=== PATIENT | female | born 1970 | race Caucasian/White ===

== ENCOUNTER 2017-04-03 09:46 | Emergency (ER) | payer BC ==
[~2017-04-03] VITALS: Ht 162.6 cm; Wt 95.7 kg
[~2017-04-03 09:46] MED LIST: COLA100C2; PERC5TAB8; SENN8.6T5
[2017-04-03] MEDS ORDERED: FOLB1TAB PO (09:55)
[2017-04-03] MEDS ORDERED: NS 1,000 ML IV ONE (10:15)
[2017-04-03] MEDS ORDERED: ONDANSETRON 4MG/2ML VIAL (J2405) IV ONE (10:15)
[2017-04-03] MEDS ORDERED: GI COCKTAIL 50ML BTL(HYOSCYAMINE/MAALOX/LIDOCAINE VISCOUS)(1:3:1) PO ONE (10:15)
[2017-04-03 11:00] LABS: BASO % 0.9 % (0.0-1.0); EOS # 0.1 K/mm3 (0.0-0.50); EOS % 1.5 % (0.0-3.0); LARGE UNSTAINED CELL % 1.4 % (0.0-4.0); LYMPH # 1.4 K/mm3 (1.5-4.5); LYMPH % 23.7 % (24.0-44.0); MEAN CORPUSCULAR HEMOGLOBIN 29.7 pg (27.0-33.0); MEAN CORPUSCULAR HGB CONC 32.9 g/dl (32.0-36.5); MEAN CORPUSCULAR VOLUME 90.2 fl (80.0-96.0); MONO # 0.3 K/mm3 (0.0-0.8); MONO % 5.6 % (0.0-5.0); NEUTROPHILS # 3.9 K/mm3 (1.8-7.7); PLATELET COUNT, AUTOMATED 177 k/mm3 (150-450); RED CELL DISTRIBUTION WIDTH 12.5 % (11.5-14.5); WHITE BLOOD COUNT 5.8 K/mm3 (4.0-10.0)
[2017-04-03 11:01] LABS: ADD MANUAL DIFFER NO; BASO # 0.1 K/mm3 (0.0-0.2); DIFF SLIDE NUMBER 213; LARGE UNSTAINED CELL # 0.1 K/mm3 (0.0-0.4)
[2017-04-03 11:13] LABS: MICROSCOPIC INDICATED? NO (NO)
[2017-04-03 11:28] LABS: BLOOD UREA NITROGEN 9 MG/DL (7-18); CREATININE FOR GFR 0.91 MG/DL (0.55-1.02); GLOMERULAR FILTRATION RATE > 60.0 (>58); GLUCOSE, FASTING 87 MG/DL (70-105); SODIUM LEVEL 142 MEQ/L (136-145)
[2017-04-03 11:29] LABS: ALBUMIN 3.9 GM/DL (3.2-5.2); ALBUMIN/GLOBULIN RATIO 1.03 (1.00-1.93); ALKALINE PHOSPHATASE 74 U/L (45-117); ALT/SGPT 20 U/L (12-78); AMYLASE 38 U/L (25-115); ANION GAP 4 MEQ/L (8-16); AST/SGOT 14 U/L (15-37); BILIRUBIN,DIRECT 0.1 MG/DL (0.0-0.2); BILIRUBIN,TOTAL 0.5 MG/DL (0.2-1.0); CALCIUM LEVEL 8.7 MG/DL (8.5-10.1); CARBON DIOXIDE LEVEL 31 MEQ/L (21-32); CHLORIDE LEVEL 107 MEQ/L (98-107); POTASSIUM SERUM 3.8 MEQ/L (3.5-5.1); TOTAL PROTEIN 7.7 GM/DL (6.4-8.2)
[2017-04-03] MEDS ORDERED: PROTPAK PO (11:44)
[2017-04-03] MEDS ORDERED: ZOFR4TAB3 PO (11:44)
[2017-04-03] MEDS ORDERED: SUCR1SS PO (11:44)
[2017-04-03 11:45] VITALS: BP 126/67
== END 2017-04-03 11:58 | disposition home or self-care (01) ==
LOC: M ED 09:46
DX: K29.00 Acute gastritis without bleeding (principal)
CPT/HCPCS: 80048; 80076; 81001; 82150; 83690; 85025; 96374; 99283; J2405

== ENCOUNTER → 2020-01-07 | Outpatient (CLI) | payer BC ==
[~2020-01-07] MED LIST changes: +FOLB1TAB PO; +PROTPAK PO; +SUCR1SS PO; +ZOFR4TAB14 PO
[2020-01-07 16:12] LABS: BASO % 0.7 % (0.0-1.0); EOS # 0.1 10^3/uL (0.0-0.5); EOS % 2.2 % (0.0-3.0); HEMOGLOBIN 13.2 g/dl (12.0-15.5); LYMPH # 1.5 10^3/uL (1.5-5.0); MEAN CORPUSCULAR HEMOGLOBIN 29.7 pg (27.0-33.0); MEAN CORPUSCULAR HGB CONC 32.2 g/dl (32.0-36.5); MEAN CORPUSCULAR VOLUME 92.1 fl (80.0-96.0); MONO # 0.3 10^3/uL (0.0-0.8); MONO % 5.4 % (0.0-5.0); NEUTROPHILS # 3.9 10^3/uL (1.5-8.5); NEUTROPHILS % 65.4 % (36.0-66.0); PLATELET COUNT, AUTOMATED 230 10^3/uL (150-450); RED BLOOD COUNT 4.45 10^6/uL (4.00-5.40); WHITE BLOOD COUNT 5.9 10^3/uL (4.0-10.0)
[2020-01-07 17:00] LABS: ALBUMIN 3.4 GM/DL (3.2-5.2); ALT/SGPT 24 U/L (12-78); BILIRUBIN,TOTAL 0.2 MG/DL (0.2-1.0); BLOOD UREA NITROGEN 8 MG/DL (7-18); C REACTIVE PROTEIN QUANTITATIV < 0.30 MG/DL (0.00-0.30); CALCIUM LEVEL 8.6 MG/DL (8.5-10.1); CARBON DIOXIDE LEVEL 29 MEQ/L (21-32); CHLORIDE LEVEL 107 MEQ/L (98-107); GLOMERULAR FILTRATION RATE > 60.0 (>58); GLUCOSE, FASTING 88 MG/DL (70-100); POTASSIUM SERUM 4.4 MEQ/L (3.5-5.1); RHEUMATOID FACTOR QUANT < 10.0 IU/ML (<15.0); SODIUM LEVEL 140 MEQ/L (136-145); TOTAL PROTEIN 6.6 GM/DL (6.4-8.2)
[2020-01-07 19:23] LABS: ERYTHROCYTE SEDIMENTATION RATE 8 mm/hr (0-20)
[2020-01-13 12:08] LABS: ANTINUCLEAR ANTIBODIES DIRECT Negative (Negative); HLA-B27 Negative (.); Lyme Disease IgG/IgM Antibodie <0.91 ISR (0.00-0.90); Lyme Disease IgM Ab Quantitati <0.80 index (0.00-0.79)
== END ==
LOC: M WUC 13:39
PROVIDERS: ATTEND Physician Assistant
DX: L50.9 Urticaria, unspecified (principal); R53.83 Other fatigue; G51.0 Bell's palsy; M12.9 Arthropathy, unspecified

== ENCOUNTER → 2020-07-31 | Outpatient (CLI) | payer OTHER ==
--- NOTE | 2020-07-31 15:45 | REP ---
INDICATION: LOCALLIZED SWELLING MASS/LUMP IN LEFT LOWER LIMB. COMPARISON: None. TECHNIQUE: Left lower extremity duplex venous scanning. FINDINGS: The deep veins are anechoic and fully compressible from the groin to the popliteal fossa in the left lower extremity. Color flow imaging is homogeneous. Spectral Doppler interrogation demonstrates intact respiratory variation in flow and normal manual augmentation of flow. There is no evidence of deep vein thrombosis. IMPRESSION: Negative left lower extremity duplex venous ultrasound. No evidence of deep vein thrombosis. <Electronically signed by Casey Stanton > 07/31/20 [id number]
== END ==
LOC: M RAD 15:09
PROVIDERS: ATTEND Nurse Practitioner Family
DX: R52 Pain, unspecified (principal); R22.42 Localized swelling, mass and lump, left lower limb

== ENCOUNTER → 2020-08-02 | Outpatient (CLI) | payer OTHER ==
[2020-08-02 11:48] LABS: BASO % 0.3 % (0.0-1.0); EOS # 0.1 10^3/uL (0.0-0.5); EOS % 0.6 % (0.0-3.0); HEMATOCRIT 47.4 % (36.0-47.0); HEMOGLOBIN 15.1 g/dl (12.0-15.5); LYMPH # 2.1 10^3/uL (1.5-5.0); LYMPH % 16.9 % (24.0-44.0); MEAN CORPUSCULAR HEMOGLOBIN 29.2 pg (27.0-33.0); MEAN CORPUSCULAR HGB CONC 31.9 g/dl (32.0-36.5); MEAN CORPUSCULAR VOLUME 91.5 fl (80.0-96.0); MONO # 0.7 10^3/uL (0.0-0.8); MONO % 5.8 % (0.0-5.0); NEUTROPHILS # 9.2 10^3/uL (1.5-8.5); NEUTROPHILS % 75.2 % (36.0-66.0); PLATELET COUNT, AUTOMATED 200 10^3/uL (150-450); RED BLOOD COUNT 5.18 10^6/uL (4.00-5.40); WHITE BLOOD COUNT 12.2 10^3/uL (4.0-10.0)
[2020-08-02 12:27] LABS: ALBUMIN 3.5 GM/DL (3.2-5.2); ALT/SGPT 20 U/L (12-78); BILIRUBIN,TOTAL 0.5 MG/DL (0.2-1.0); BLOOD UREA NITROGEN 10 MG/DL (7-18); C REACTIVE PROTEIN QUANTITATIV 1.29 MG/DL (0.00-0.30); CALCIUM LEVEL 8.5 MG/DL (8.5-10.1); CARBON DIOXIDE LEVEL 30 MEQ/L (21-32); CHLORIDE LEVEL 105 MEQ/L (98-107); CPK CREATINE PHOSPHOKINASE 36 U/L (26-192); CREATININE FOR GFR 0.95 MG/DL (0.55-1.30); GLOMERULAR FILTRATION RATE > 60.0 (>58); GLUCOSE, FASTING 86 MG/DL (70-100); MAGNESIUM LEVEL 2.3 MG/DL (1.8-2.4); SODIUM LEVEL 139 MEQ/L (136-145)
[2020-08-02 12:41] LABS: ERYTHROCYTE SEDIMENTATION RATE 6 mm/hr (0-20)
== END ==
LOC: M LAB 11:08
PROVIDERS: ATTEND Nurse Practitioner Family
DX: M79.662 Pain in left lower leg (principal)

== ENCOUNTER → 2020-08-10 | Outpatient (CLI) | payer OTHER ==
[~2020-08-10] MED LIST changes: +ISOVUE-370 76% 100ML VIAL As Ordered ONE
--- NOTE | 2020-08-10 15:31 | REP ---
INDICATION: CHEST PAIN ? PE COMPARISON: None. TECHNIQUE: Axial contrast enhanced images from the thoracic inlet to the upper abdomen using pulmonary embolus technique with multiplanar re-formations. 75 ml Isovue 370 intravenous contrast material administered without complication. This CT examination was performed using the following dose reduction techniques: Automated exposure control, adjustment of mA and/or kv according to the patient's size, and use of iterative reconstruction technique. FINDINGS: Satisfactory enhancement of the pulmonary vasculature is achieved and small pulmonary emboli identified in 2nd to 3rd order right lower lobe and left lower lobe arterial branches. The bilateral lung beavers are otherwise clear and without consolidation or atelectasis. No effusion or pneumothorax. Tracheobronchial tree is patent. Thoracic aorta and heart/pericardium are normal. No significant adenopathy. IMPRESSION: Small pulmonary emboli to the 2nd and 3rd order right lower lobe and left lower lobe pulmonary arterial branches. No associated areas of consolidation/atelectasis or effusion. <Electronically signed by Jose Hannah > 08/10/20 [id number]
== END ==
LOC: M RAD 14:20
PROVIDERS: ATTEND Nurse Practitioner Family
DX: I26.99 Other pulmonary embolism without acute cor pulmonale (principal); R07.89 Other chest pain
CPT/HCPCS: 71275; Q9967

== ENCOUNTER 2020-08-12 10:27 | Emergency (ER) | payer OTHER ==
[~2020-08-12] VITALS: Ht 162.6 cm; Wt 99.2 kg
[~2020-08-12 10:27] MED LIST changes: -ISOVUE-370 76% 100ML VIAL As Ordered ONE
--- OUTSIDE RECORDS SUMMARY | 2020-08-12 10:35 | CCD ---
Author Author [facility] Organization [facility] Address Unknown Phone Unavailable Care Team Providers Care Belt Puncher Name Role Phone Macario Carpio MD Unavailable Unavailable Balaji, Macario Godinez MD Unavailable Unavailable Balaji, Macario Godinez MD Unavailable Unavailable Balaji, Macario Godinez MD Unavailable Unavailable Balaji, Macario Godinez MD Unavailable Unavailable Balaji, Macario Godinez MD Unavailable Unavailable Balaji, Macario Godinez MD Unavailable Unavailable Ablaji, Macario Godinez MD Unavailable Unavailable Balaji, Macario Godinez MD Unavailable Unavailable Balaji, Macario Godinez MD Unavailable Unavailable Balaji, Macario Godinez MD Unavailable Unavailable Balaji, Macario Godinez MD Unavailable Unavailable Balaji, Macario Godinez MD Unavailable Unavailable Balaji, Macario Godinez MD Unavailable Unavailable Balaji, Macario Godinez MD Unavailable Unavailable Balaji, Macario Godinez MD Unavailable Unavailable Balaji, Macario Godinez MD Unavailable Unavailable Balaji, Macario Godinez MD Unavailable Unavailable Balaji, Macario Godinez MD Unavailable Unavailable Balaji, Macario Godinez MD Unavailable Unavailable Balaji, Macario Godinez MD Unavailable Unavailable Balaji, Macario Godinez MD Unavailable Unavailable Balaji, Macario Godinez MD Unavailable Unavailable Balaji, Macario Godinez MD Unavailable Unavailable Balaji, Macario Godinez MD Unavailable Unavailable Balaji, Macario Godinez MD Unavailable Unavailable Balaji, Macario Godinez MD Unavailable Unavailable Balaji, Macario Godinez MD Unavailable Unavailable Balaji, Macario Godinez MD Unavailable Unavailable Balaji, Macario Godinez MD Unavailable Unavailable Balaji, Macario Godinez MD Unavailable Unavailable Balaji, Macario Godinez MD Unavailable Unavailable Balaji, Macario Godinez MD Unavailable Unavailable Balaji, Macario Godinez MD Unavailable Unavailable Balaji, Macario Godinez MD Unavailable Unavailable Balaji, Macario Godinez MD Unavailable Unavailable Balaji, Macario Godinez MD Unavailable Unavailable Balaji, Macario Godinez MD Unavailable Unavailable Balaji, Macario Godinez MD Unavailable Unavailable Balaji, Macario Godinez MD Unavailable Unavailable Balaji, Macario Godinez MD Unavailable Unavailable Balaji, Macario Godinez MD Unavailable Unavailable Balaji, Macario Godinez MD Unavailable Unavailable Balaji, Macario Godinez MD Unavailable Unavailable Balaji, Macario Godinez MD Unavailable Unavailable Balaji, Macario Godinez MD Unavailable Unavailable Balaji, Macario Godinez MD Unavailable Unavailable Balaji, Macario Godinez MD Unavailable Unavailable Balaji, Macario Godinez MD Unavailable Unavailable Balaji, Macario Godinez MD Unavailable Unavailable Balaji, Macario Godinez MD Unavailable Unavailable Balaji, Macario Godinez MD Unavailable Unavailable Balaji, Macario Godinez MD Unavailable Unavailable Balaji, Macario Godinez MD Unavailable Unavailable Balaji, Macario Godinez MD Unavailable Unavailable Balaji, Macario Godinez MD Unavailable Unavailable Balaji, Macario Godinez MD Unavailable Unavailable Balaji, Macario Godinez MD Unavailable Unavailable Balaji, Macario Godinez MD Unavailable Unavailable Balaji, Macario Godinez MD Unavailable Unavailable Balaji, Macario Godinez MD Unavailable Unavailable Balaji, Macario Godinez MD Unavailable Unavailable Balaji, Macario Godinez MD Unavailable Unavailable Balaji, Macario Godinez MD Unavailable Unavailable Balaji, Macario Godinez MD Unavailable Unavailable Balaji, Macario Godinez MD Unavailable Unavailable Balaji, Macario Godinez MD Unavailable Unavailable Balaji, Macario Godinez MD Unavailable Unavailable Balaji, Macario Godinez MD Unavailable Unavailable Balaji, Macario Godinez MD Unavailable Unavailable Balaji, Macario Godinez MD Unavailable Unavailable Balaji, Macario Godinez MD Unavailable Unavailable Balaji, Macario Godinez MD Unavailable Unavailable Balaji, Macario Godinez MD Unavailable Unavailable Balaji, Macario Godinez MD Unavailable Unavailable Scordo, M Estephania PA Unavailable Unavailable Scordo, M Estephania PA Unavailable Unavailable Scordo, M Estephania PA Unavailable Unavailable Scordo, M Estephania PA Unavailable Unavailable Scordo, M Estephania PA Unavailable Unavailable Scordo, M Estephania PA Unavailable Unavailable Scordo, M Estephania PA Unavailable Unavailable Scordo, M Estephania PA Unavailable Unavailable Scordo, M Estephania PA Unavailable Unavailable Scordo, M Estephania PA Unavailable Unavailable Scordo, M Estephania PA Unavailable Unavailable Scordo, M Estephania PA Unavailable Unavailable Scordo, M Estephania PA Unavailable Unavailable Scordo, M Estephania PA Unavailable Unavailable Scordo, M Estephania PA Unavailable Unavailable Scordo, M Estephania PA Unavailable Unavailable Scordo, M Estephania PA Unavailable Unavailable Scordo, M Estephania PA Unavailable Unavailable Scordo, M Estephania PA Unavailable Unavailable Scordo, M Estephania PA Unavailable Unavailable Scordo, M Estephania PA Unavailable Unavailable Scordo, M Estephania PA Unavailable Unavailable Scordo, M Estephania PA Unavailable Unavailable Scordo, M Estephania PA Unavailable Unavailable Scordo, M Estephania PA Unavailable Unavailable Scordo, M Estephania PA Unavailable Unavailable Scordo, M Estephania PA Unavailable Unavailable Scordo, M Estephania PA Unavailable Unavailable Scordo, M Estephania PA Unavailable Unavailable Scordo, M Estephania PA Unavailable Unavailable Scordo, M Estephania PA Unavailable Unavailable Scordo, M Estephania PA Unavailable Unavailable Scordo, M Estephania PA Unavailable Unavailable Scordo, M Estephania PA Unavailable Unavailable Scordo, M Estephania PA Unavailable Unavailable Scordo, M Estephania PA Unavailable Unavailable Scordo, M Estephania PA Unavailable Unavailable Scordo, M Estephania PA Unavailable Unavailable Scordo, M Estephania PA Unavailable Unavailable Scordo, M Estephania PA Unavailable Unavailable [place], [facility] Unavailable Unavailable [place], [facility] Unavailable Unavailable [place], [facility] Unavailable [facility]available [place], [facility] Unavailable Unavailable [place], [facility] Unavailable Unavailable [place], [facility] Unavailable Unavailable [place], [facility] Unavailable Unavailable [place], [facility] Unavailable Unavailable [place], [facility] Unavailable Unavailable [place], [facility] Unavailable Unavailable [place], [facility] Unavailable Unavailable [place], [facility] Unavailable Unavailable [place], [facility] Unavailable Unavailable [place], [facility] Unavailable Unavailable [place], [facility] Unavailable Unavailable [place], [facility] Unavailable Unavailable [place], [facility] Unavailable Unavailable [place], [facility] Unavailable Unavailable [place], [facility] Unavailable Unavailable [place], [facility] Unavailable Unavailable [place], [facility] Unavailable Unavailable [place], [facility] Unavailable Unavailable [place], [facility] Unavailable Unavailable [place], [facility] Unavailable Unavailable [place], [facility] Unavailable Unavailable [place], [facility] Unavailable Unavailable [place], [facility] Unavailable Unavailable [place], [facility] Unavailable Unavailable YAN, JEMMA PA Unavailable Unavailable YAN, JEMMA PA Unavailable Unavailable YAN, JEMMA PA Unavailable Unavailable YAN, JEMMA PA Unavailable Unavailable YAN, JEMMA PA Unavailable Unavailable YAN, JEMMA PA Unavailable Unavailable YAN, JEMMA PA Unavailable Unavailable YAN, JEMMA PA Unavailable Unavailable YAN, JEMMA PA Unavailable Unavailable YAN, JEMMA PA Unavailable Unavailable YAN, JEMMA PA Unavailable Unavailable YAN, JEMMA PA Unavailable Unavailable YAN, JEMMA PA Unavailable Unavailable YAN, JEMMA PA Unavailable Unavailable YAN, JEMMA PA Unavailable Unavailable YAN, JEMMA PA Unavailable Unavailable YAN, JEMMA PA Unavailable Unavailable YAN, JEMMA PA Unavailable Unavailable YAN, JEMMA PA Unavailable Unavailable YAN, JEMMA PA Unavailable Unavailable YAN, JEMMA PA Unavailable Unavailable YAN, JEMMA PA Unavailable Unavailable YAN, JEMMA PA Unavailable Unavailable YAN, JEMMA PA Unavailable Unavailable YAN, JEMMA PA Unavailable Unavailable YAN, JEMMA PA Unavailable Unavailable YAN, JEMMA PA Unavailable Unavailable YAN, JEMMA PA Unavailable Unavailable YAN, JEMMA PA Unavailable Unavailable YAN, JEMMA PA Unavailable Unavailable YAN, JEMMA PA Unavailable Unavailable YAN, JEMMA PA Unavailable Unavailable YAN, JEMMA PA Unavailable Unavailable YAN, JEMMA PA Unavailable Unavailable YAN, JEMMA PA Unavailable Unavailable YAN, JEMMA PA Unavailable Unavailable YAN, JEMMA PA Unavailable Unavailable YAN, JEMMA PA Unavailable Unavailable [place], Tiesha [employer] Unavailable Unavailable [place], Tiesha [employer] PUBL[employer] Unavailable Unavailable [place], Tiesha [employer] Unavailable Unavailable [place], Tiesha [employer] PUBLISH[employer] ASSOCIATE Unavailable Unavailable [place], Tiesha [employer] PUBLISHING ASSOCIATE Unavailable Unavailable [place], Tiesha [employer] PUBLISHING ASS[employer]IATE Unavailable Unavailable [place], Tiesha [employer] Unavailable Unavailable [place], Tiesha [employer] PUBLISH[employer] ASS[employer]IATE Unavailable Unavailable [place], Tiesha [employer] PUBL[employer] Unavailable Unavailable [place], Tiesha [employer] PUBL[employer] Unavailable Unavailable [place], Tiesha DESK[employer] PUBLISHING ASSOCIATE Unavailable Unavailable Re-disclosure Warning The records that you are about to access may contain information from federally-assisted alcohol or drug abuse programs. If such information is present, then the following federally mandated warning applies: This information has been disclosed to you from records protected by federal confidentiality rules (42 CFR part 2). The federal rules prohibit you from making any further disclosure of this information unless further disclosure is expressly permitted by the written consent of the person to whom it pertains or as otherwise permitted by 42 CFR part 2. A general authorization for the release of medical or other information is NOT sufficient for this purpose. The Federal rules restrict any use of the information to criminally investigate or prosecute any alcohol or drug abuse patient.The records that you are about to access may contain highly sensitive health information, the redisclosure of which is protected by Article 27-F of the [facility] Public Health law. If you continue you may have access to information: Regarding HIV / AIDS; Provided by facilities licensed or operated by the [facility] Office of Mental Health; or Provided by the [facility] Office for People With Developmental Disabilities. If such information is present, then the following [facility] mandated warning applies: This information has been disclosed to you from confidential records which are protected by state law. State law prohibits you from making any further disclosure of this information without the specific written consent of the person to whom it pertains, or as otherwise permitted by law. Any unauthorized further disclosure in violation of state law may result in a fine or usp sentence or both. A general authorization for the release of medical or other information is NOT sufficient authorization for further disc losure. Family History Family Member Name Family Member Gender Family Member Status Date o f Status Description Data Source(s) Unknown Unknown Problem [facility] ([facility]) Unknown Unknown Problem [facility] ([facility] Unknown Unknown Problem [facility] ([facility] Unknown Unknown Problem [facility] Unknown Unknown Problem [facility] ([facility] Encounters Encounter Providers Location Date Indications Data Source(s ) Outpatient Attender: Fatimah Rey [facility] Main Office 08/02/2020 0 9:00:00 AM EST [facility] ([facility] Outpatient Attender: Fatimah Rey [facility] Main Office 07/31/2020 0 9:00:00 AM EST [facility] ([facility] Outpatient Attender: Gretchen Carpio MD Main Office 04/10/2020 01:45:0 0 PM EDT [facility] ([facility] Outpatient Attender: JEMMA ramirez 03/20/2020 05:05:00 PM EDT [facility] ([facility]) Outpatient Attender: Estephania RIVERA Main Office 12/28/2019 11:00:00 AM EDT [facility] ([facility] Outpatient Attender: Fatimah ALLENP Main Office 10/26/2019 0 9:30:00 AM EDT [facility] ([facility] Outpatient Attender: Tiesha Lei [facility] 09/22/2019 03:45:00 PM EST [facility] ([facility]) Medications Medication Brand Name Start Date Product Form Dose Route Admi nistrative Instructions Pharmacy Instructions Status Indications Reaction Description Data Source(s) Cyclobenzaprine hydrochloride 10 MG Oral Tablet Cyclobenzapr ine HCL 08/10/2020 12:00:00 AM EST ORAL active M [facility] ([facility] Prednisone 10 MG Oral Tablet Prednisone 08/04/2020 12:00:00 AM EST active [facility] ([facility] Tobramycin 3 MG/ML Ophthalmic Solution Tobramycin 04/10/2020 12:0 0:00 AM EDT OPHTHALMIC completed [facility] ([facility] Fluconazole 150 MG Oral Tablet [Diflucan] Diflucan 04/07/2020 1 2:00:00 AM EDT completed [facility] ([facility] Amoxicillin 875 MG / Clavulanate 125 MG Oral Tablet Am oxicillin/Clavulanate Potassium 03/20/2020 12:00:00 AM EDT ORAL active [facility] ([facility], [facility]) 200 ACTUAT Albuterol 0.09 MG/ACTUAT Dry Powder Inhaler [ProAir] Proair Respiclick 12/28/2019 12:00:00 AM EDT RESPIRATORY comple aldair [facility] ([facility] 200 ACTUAT Albuterol 0.09 MG/ACTUAT Metered Dose Inhaler [Pr oAir] Proair HFA 12/28/2019 12:00:00 AM EDT RESPIRATORY active [facility] ([facility] Sulfamethoxazole 800 MG / Trimethoprim 160 MG Oral Tab let Sulfamethoxazole/Trimethoprim DS 11/01/2019 12:00:00 AM EDT ORAL completed [facility] ([facility] Sulfamethoxazole 800 MG / Trimethoprim 160 MG Oral Tablet [B actrim] Bactrim DS 11/01/2019 12:00:00 AM EDT ORAL completed [facility] ([facility] Fluconazole 200 MG Oral Tablet [Diflucan] Diflucan 10/26/2019 1 2:00:00 AM EDT completed [facility] ([facility] NITROFURANTOIN, MACROCRYSTALS 25 MG / Ni trofurantoin, Monohydrate 75 MG Oral Capsule [Macrobid] Macrobid 10/26/2019 12:00:00 AM EDT completed [facility] ([facility] Amoxicillin 875 MG / Clavulanate 125 MG Oral Tablet Am oxicillin/Clavulanate Potassium 09/22/2019 12:00:00 AM EST ORAL completed [facility] ([facility], [facility]) Dexamethasone Sodium Phosphate Dexamethasone Sodium Phosphat e 06/18/2019 12:00:00 AM EST active M [facility] ([facility] ) Insurance Providers Payer name Policy type / Coverage type Policy ID Covered republican ID Covered republican's relationship to lea Policy Lea Plan Information AET[place] [id number] [id number] [facility] [place] O [id number] P [id number] [facility] O [id number] P [id number] EXCELLUS BCBS B [id number] P TNY [id number] AETNA [place] HEALTHCARE [place] [id number] SP [id number] LIF[employer]IME BENEFIT SOLUTIONS [id number] HU2 [id number] SELF PAY ONLY BCBS [place] PPO 302/[id number] CIGNA U [id number] Self [id number] [facility] Health Maintenance Organization (O) [id number] [facility] [id number] BC/BS Of [facility] Commercial [id number] Family Dependent [id number] BS Of [facility] ([facility]) [id number] Family Dependent [id number] BS Of [facility] ([facility]) [id number] Family Dependent [id number] EXCELLUS BCBS PI PI EXCELLUS BCBS [id number] Spo TNY [id number] EXCELLUS BCBS [id number] Spo TNY [id number] Cigna/MVP/Preferred Care Medigap Part B Family Dep endent BCBS [facility] Part B Family Dependent [facility]a [facility] Part B Family Dependent Cigna/[facility] Part B Self BC/BS Of [facility] Part B Family Dependent Blue Ppo Medigap Part B Family Dependent Cigna/MVP Medigap Part B Self BCBS Excellus Ppo U/W Commercial Family Dependent BS Of [facility] Maintenance Organization ([facility]) Family Dependent CIGNA HEALTHCARE [id number] BC/BS Of [facility] Part B Family Dep endent Cigna Commercial Family Dependent CIGNA HEALTHCARE-O/P [id number] CIGNA/MVP/CONN GEN/PREFE P [id number] P [id number] Surgeries/Procedures Procedure Description Date Indications Data Source(s) THERAPEUTIC PX 1/> AREAS EACH 15 MIN EXERCISES 019 12:00:00 AM EST [facility] ([facility]) MANUAL THERAPY TQS 1/> REGIONS EACH 15 MINUTES 019 12:00:00 AM EST [facility] ([facility]) Results ID Date Data Source [id number] 08/03/2020 12:00:00 AM EST [facility] Cardoza Patient Name: IMANI [id number] Date of : 1970[place] [address] Date of Exam: 08/03/2020#: Fax: [phone] EXAM: CT ANGIO LWR EXTR W/O&W/DYECLINICAL INFORMATION: Left leg pain, rule out ischemia. Recent history ofCovid-19 infection. Left lower extremity duplex venous scan from 07/31/2020howed no evidence of venous thrombosis.TECHNIQ UE:Helical scanning is acquired following contrast administration and 3 mmaxial images are reformatted. 3D surface rendered images are generated andviewed in a spin and tumble format. Delayed, venous phase acquisition wasalso included. Contrast dose: 125 cc of Optiray 350.FINDINGS:The common iliac arteries are widely patent. Bilaterally patent internaliliac arteries are seen. The left external iliac artery is unremarkable.Common femoral artery is widely patent and unremarkable. The proximalsuperficial femoral and the profunda femoral artery on the left are normalin appearance. The mid and distal superficial femoral artery on the leftare intact. Popliteal artery is of good caliber and smooth. The tibialperoneal trunk is intact. Anterior, posterior, and peroneal arteries arewidely patent to the distal calf and anterior and posterior tibial arteriesare patent across the ankle. No large vessel thrombosis or occlusion isseen. Delayed acquisition no venous abnormality. Skeletal muscle andmy ofascial interfaces are intact. No bony lesion is seen. A normalfabella is noted.IMPRESSION:Normal left lower extremity CT angiography.Accredited by the [employer] in [place].NAREN Bergeron/Blanca you for referring IMANI SEO to our office. Electronically Signed - CANDE CRUMP MD 08/03/20 16:08 Name Value Range Interpretation Code Description Data Georgette rce(s) Supporting Document(s) ID Date Data Source [id number] 08/02/2020 11:25:00 AM EST [facility] ([facility] Name Value Range Interpretation Code Description Data Georgette rce(s) Supporting Document(s) Erythrocyte sedimentation rate by 2H Westergren method 6 mm/hr 0-2 0 [facility] ([facility] C reactive protein [Mass/volume] in Serum or Plasma by High sensitivity method 1.29 mg/dL 0.00-0.30 [facility] Creatine kinase [Enzymatic activity/volume] in Serum or Plasma 36 U /L 26-192 [facility] ([facility] Magnesium [Mass/volume] in Serum or Plasma 2.3 mg/dL 1.8-2.4 [facility] ([facility] ID Date Data Source [id number] 08/02/2020 11:25:00 AM EST [facility] ([facility] Name Value Range Interpretation Code Description Data Georgette rce(s) Supporting Document(s) Glucose, Fasting 86 mg/dL 70-100 [facility] ([facility] Creatinine For GFR 0.95 mg/dL 0.55-1.30 [facility] ([facility] Blood Urea Nitrogen 10 mg/dL 7-18 [facility] ([facility] Glomerular Filtration Rate Laboratory test result [facility] ([facility] <content>Units are mL/min/1.73 m2</content>
<content></content>
<content>Chronic Kidney Disease Staging per NKF:</content>
<content></content>
<content>Stage I & II GFR >=60 Normal to Mildly Decreased</content>
<content>Stage III GFR 30- 59 Moderately Decreased</content>
<content>Stage IV GFR 15-29 Severely Decreased</content>
<content>Stage V GFR <15 Very Little GFR Left</content>
<content>ESRD GFR <15 on QUALITY ASSURANCE GROUP LEADER</content>
<content></content> Sodium Level 139 meq/L 136-145 [facility] ([facility] Potassium Serum 4.0 meq/L 3.5-5.1 [facility] ([facility] Carbon Dioxide Level 30 meq/L 21-32 [facility] ([facility] Anion Gap 4 meq/L 8-16 [facility] ([facility] Chloride Level 105 meq/L 98-107 [facility] Alt/SGPT 20 U/L 12-78 [facility] Ast/Sgot 8 U/L 7-37 [facility] Calcium Level 8.5 mg/dL 8.5-10.1 [facility] ([facility] Bilirubin,Total 0.5 mg/dL 0.2-1.0 [facility] ([facility] Total Protein 7.0 GM/DL 6.4-8.2 [facility] ([facility] Alkaline Phosphatase 74 U/L 45-117 [facility] ([facility] Albumin 3.5 GM/DL 3.2-5.2 [facility] ([facility] Albumin/Globulin Ratio 1.0 1.2-2.2 [facility] ([facility] ID Date Data Source [id number] 08/02/2020 11:25:00 AM EST [facility] ([facility] Name Value Range Interpretation Code Description Data Georgette rce(s) Supporting Document(s) Red Blood Count 5.18 10 4.00-5.40 [facility] ([facility] White Blood Count 12.2 10 4.0-10.0 [facility] ([facility] Hemoglobin 15.1 g/dL 12.0-15.5 [facility] ([facility] Mean Corpuscular Volume 91.5 fl 80.0-96.0 M [facility] ([facility] Hematocrit 47.4 % 36.0-47.0 [facility] ([facility] Mean Corpuscular HGB Conc 31.9 g/dL 32.0-36.5 [facility] ([facility] Mean Corpuscular Hemoglobin 29.2 pg 27.0-33.0 [facility] ([facility] Platelet Count, Automated 200 10 150-450 [facility] ([facility] Neutrophils % 75.2 % 36.0-66.0 [facility] ([facility] Red Cell Distribution Width 12.6 % 11.5-14.5 [facility] Lymph % 16.9 % 24.0-44.0 [facility] Ross % 5.8 % 0.0-5.0 [facility] Eos % 0.6 % 0.0-3.0 [facility] Baso % 0.3 % 0.0-1.0 [facility] Immature Granulocyte % 1.2 % 0-3.0 [facility] ([facility] Nucleated Red Blood Cell % 0.0 % 0-0 MED [facility] ([facility] Neutrophils # 9.2 10 1.5-8.5 [facility] ([facility] Lymph # 2.1 10 1.5-5.0 [facility] ([facility] Ross # 0.7 10 0.0-0.8 [facility] Eos # 0.1 10 0.0-0.5 [facility] ([facility] Baso # 0.0 10 0.0-0.2 [facility] ID Date Data Source [id number] 07/24/2020 12:00:00 AM EST [place] Name Value Range Interpretation Code Description Data Georgette rce(s) Supporting Document(s) SARS-CoV2 Rapid [facility]igen [facility] This lab was reported by [facility]. ID Date Data Source [id number] 01/07/2020 01:40:00 PM EDT [facility] Name Value Range Interpretation Code Description Data Georgette rce(s) Supporting Document(s) HLA-B27 [Presence] by Probe and target amplification m ethod Laboratory test result [facility] ([facility] HLA-B*27 Negative B27 allele interpretation for all loci based on IMGT/HLA database version 3.38 This test was developed and its performance characteristics determined by [facility]. It has not been cleared or approved by the Food and Drug Administration. [facility] CLIA ID Number [id number] . This test was performed using PCR (Polymerase Chain Reaction)/SSOP (Sequence Specific Oligonucleotide Probes) technique. SBT (Sequence Based Typing) and/or SSP (Sequence Specific Primers) may be used as supplemental methods when necessary. Please contact [facility] Customer Service at if you have any questions. . Director of HLA Laboratory Dr Graham Arambula, PhD Thyrotropin [Units/volume] in Serum or Plasma 2.040 uIU/ML 0.358-3.74 0 [facility] Rheumatoid factor [Units/volume] in Serum or Plasma Laboratory test result [facility] ID Date Data Source [id number] 01/07/2020 01:40:00 PM EDT [facility] ([facility] Name Value Range Interpretation Code Description Data Georgette rce(s) Supporting Document(s) Antinuclear Antibodies Direct Laboratory test result [facility] ([facility] Performed at: [address] [id number] Case Picker: Marga Ashley MD, Phone: [phone] Performed at: [address] [place] [id number] [phone] Case Picker: Graham Arambula PhD, Phone: [phone] ID Date Data Source [id number] 01/07/2020 01:40:00 PM EDT [facility] Name Value Range Interpretation Code Description Data Georgette rce(s) Supporting Document(s) Erythrocyte sedimentation rate by 2H Westergren method 8 mm/hr 0-2 0 [facility] C reactive protein [Mass/volume] in Serum or Plasma by High sensitivity method Laboratory test result 0.00-0.30 [facility] ([facility] ID Date Data Source [id number] 01/07/2020 01:40:00 PM EDT [facility] Name Value Range Interpretation Code Description Data [facility](s) Supporting Document(s) Lyme Disease IgG/IgM Antibodie Laboratory test result 0.00-0.90 [facility] ([facility] <content>Negative <0.91</content >
<content>Equivocal 0.91 - 1.09</content>
<content>Positive >1.09</content>
<content></content> Lyme Disease IgM Ab Quantitati Laboratory test result 0.00-0.79 [facility] ([facility] <content>Negative <0.80</content >
<content>Equivocal 0.80 - 1.19</content>
<content>Positive >1.19</content>
<content>.</content>
<content>IgM levels may peak at 3-6 weeks post infection, then</content>
<content>gradually decline.</content>
<content></content> ID Date Data Source [id number] 01/07/2020 01:40:00 PM EDT [facility] Name Value Range Interpretation Code Description Data [facility] Supporting Document(s) Blood Urea Nitrogen 8 mg/dL 7-18 [facility] ([facility] Glucose, Fasting 88 mg/dL 70-100 [facility] Creatinine For GFR 0.90 mg/dL 0.55-1.30 [facility] Glomerular Filtration Rate Laboratory test result [facility] ([facility] <content>Units are mL/min/1.73 m2</content>
<content></content>
<content>Chronic Kidney Disease Staging per NKF:</content>
<content></content>
<content>Stage I & II GFR >=60 Normal to Mildly Decreased</content>
<content>Stage III GFR 30- 59 Moderately Decreased</content>
<content>Stage IV GFR 15-29 Severely Decreased</content>
<content>Stage V GFR <15 Very Little GFR Left</content>
<content>ESRD GFR <15 on QUALITY ASSURANCE GROUP LEADER</content>
<content></content> Potassium Serum 4.4 meq/L 3.5-5.1 [facility] Chloride Level 107 meq/L 98-107 [facility] Sodium Level 140 meq/L 136-145 [facility] Calcium Level 8.6 mg/dL 8.5-10.1 [facility] Carbon Dioxide Level 29 meq/L 21-32 [facility] ([facility] Ast/Sgot 10 U/L 7-37 [facility] Anion Gap 4 meq/L 8-16 [facility] Alt/SGPT 24 U/L 12-78 [facility] Alkaline Phosphatase 77 U/L 45-117 [facility] ([facility] Bilirubin,Total 0.2 mg/dL 0.2-1.0 [facility] ([facility] Total Protein 6.6 GM/DL 6.4-8.2 [facility] Albumin/Globulin Ratio 1.1 1.2-2.2 [facility] ([facility] Albumin 3.4 GM/DL 3.2-5.2 [facility] ID Date Data Source [id number] 01/07/2020 01:40:00 PM EDT [facility] ([facility] Name Value Range Interpretation Code Description Data Georgette rce(s) Supporting Document(s) Red Blood Count 4.45 10 4.00-5.40 [facility] ([facility] Hemoglobin 13.2 g/dL 12.0-15.5 [facility] ([facility] White Blood Count 5.9 10 4.0-10.0 [facility] ([facility] Mean Corpuscular Hemoglobin 29.7 pg 27.0-33.0 [facility] Hematocrit 41.0 % 36.0-47.0 [facility] ([facility] Mean Corpuscular Volume 92.1 fl 80.0-96.0 M [facility] ([facility] Mean Corpuscular HGB Conc 32.2 g/dL 32.0-36.5 [facility] Platelet Count, Automated 230 10 150-450 [facility] Red Cell Distribution Width 12.5 % 11.5-14.5 [facility] Lymph % 26.0 % 24.0-44.0 [facility] Neutrophils % 65.4 % 36.0-66.0 [facility] Ross % 5.4 % 0.0-5.0 [facility] Baso % 0.7 % 0.0-1.0 [facility] Immature Granulocyte % 0.3 % 0-3.0 [facility] ([facility] Eos % 2.2 % 0.0-3.0 [facility] Nucleated Red Blood Cell % 0.0 % 0-0 [facility] ([facility] Ross # 0.3 10 0.0-0.8 [facility] Lymph # 1.5 10 1.5-5.0 [facility] Neutrophils # 3.9 10 1.5-8.5 [facility] Eos # 0.1 10 0.0-0.5 [facility] Baso # 0.0 10 0.0-0.2 [facility] Procedure Social History Code Duration Value Status Description Data Source(s ) Smoking 08/10/2020 12:00:00 AM EST Patient has never smoked co mpleted Patient has never smoked [facility] Smoking 03/20/2020 12:00:00 AM EDT Patient has never smoked co mpleted Patient has never smoked [facility] ([facility], [facility]) Vital Signs ID Date Data Source UNK Name Value Range Interpretation Code Description Data Source(s) Body mass index (BMI) [Ratio] 38.0 kg/m2 38.0 k g/m2 [facility] [place] body weight 120 [lb_av] 120 [lb_av] [facility] T ([facility] Oxygen saturation in Arterial blood by Pulse oximetry 98 % 98 % [facility] Body weight 221.38 [lb_av] 221.38 [lb_av] MED[facility] T ([facility] Body height 64 [in_i] 64 [in_i] [facility] 5'4" Respiratory rate 15 /min 15 /min [facility] ( [facility] Body temperature 96.8 [degF] 96.8 [degF] [facility] Heart rate 90 /min 90 /min [facility] Diastolic blood pressure 76 mm[Hg] 76 mm[Hg] [facility] Systolic blood pressure 116 mm[Hg] 116 mm[Hg] [facility] ([facility] Body mass index (BMI) [Ratio] 37.3 kg/m2 37.3 k g/m2 [facility] [place] body weight 120 [lb_av] 120 [lb_av] [facility] T ([facility] Oxygen saturation in Arterial blood by Pulse oximetry 98 % 98 % [facility] Body weight 217.38 [lb_av] 217.38 [lb_av] [facility] T ([facility] Body height 64 [in_i] 64 [in_i] [facility] ([facility] 5'4" Respiratory rate 16 /min 16 /min [facility] ( [facility] Body temperature 97.0 [degF] 97.0 [degF] [facility] Heart rate 93 /min 93 /min [facility] Diastolic blood pressure 85 mm[Hg] 85 mm[Hg] [facility] Systolic blood pressure 112 mm[Hg] 112 mm[Hg] M [facility] ([facility] Body mass index (BMI) [Ratio] 37.6 kg/m2 37.6 k g/m2 [facility] ([facility] [place] body weight 120 [lb_av] 120 [lb_av] [facility] T ([facility] Oxygen saturation in Arterial blood by Pulse oximetry 100 % 100 % [facility] ([facility] Body weight 219.00 [lb_av] 219.00 [lb_av] [facility] T ([facility] Body height 64 [in_i] 64 [in_i] [facility] ([facility] 5'4" Respiratory rate 16 /min 16 /min [facility] ( [facility] Body temperature 98.5 [degF] 98.5 [degF] [facility] Heart rate 63 /min 63 /min [facility] Diastolic blood pressure 69 mm[Hg] 69 mm[Hg] [facility] ([facility] Systolic blood pressure 132 mm[Hg] 132 mm[Hg] [facility] Body mass index (BMI) [Ratio] 37.4 kg/m2 37.4 k g/m2 [facility] ([facility]) Body height 64 [in_i] 64 [in_i] [facility] ([facility]) 5'4" Body weight 218.00 [lb_av] 218.00 [lb_av] [facility] T ([facility]) Body temperature 102.2 [degF] 102.2 [degF] MEDE NT ([facility]) Oxygen saturation in Arterial blood by Pulse oximetry 99 % 99 % [facility] ([facility]) Respiratory rate 12 /min 12 /min [facility] Heart rate 99 /min 99 /min [facility] ([facility], [facility]) Diastolic blood pressure 71 mm[Hg] 71 mm[Hg] [facility] Systolic blood pressure 108 mm[Hg] 108 mm[Hg] [facility] ([facility]) Body mass index (BMI) [Ratio] 38.3 kg/m2 38.3 k g/m2 [facility] [place] body weight 120 [lb_av] 120 [lb_av] [facility] T ([facility] Oxygen saturation in Arterial blood by Pulse oximetry 96 % 96 % [facility] ([facility] Body weight 223.38 [lb_av] 223.38 [lb_av] [facility] T ([facility] Body height 64 [in_i] 64 [in_i] [facility] ([facility] 5'4" Respiratory rate 15 /min 15 /min [facility] ( [facility] Body temperature 97.9 [degF] 97.9 [degF] [facility] Heart rate 65 /min 65 /min [facility] ([facility] Diastolic blood pressure 75 mm[Hg] 75 mm[Hg] [facility] ([facility] Systolic blood pressure 130 mm[Hg] 130 mm[Hg] [facility] Body mass index (BMI) [Ratio] 37.6 kg/m2 37.6 k g/m2 [facility] ([facility], [facility]) Body height 64 [in_i] 64 [in_i] [facility] ([facility]) 5'4" Body weight 219.00 [lb_av] 219.00 [lb_av] MEDEN T ([facility], [facility]) Body temperature 99.3 [degF] 99.3 [degF] [facility] ([facility], [facility]) Oxygen saturation in Arterial blood by Pulse oximetry 100 % 100 % [facility] ([facility], [facility]) Respiratory rate 12 /min 12 /min [facility] ( [facility], [facility]) Heart rate 86 /min 86 /min [facility] ([facility], [facility]) Diastolic blood pressure 77 mm[Hg] 77 mm[Hg] [facility] ([facility], [facility]) Systolic blood pressure 119 mm[Hg] 119 mm[Hg] [facility] ([facility], [facility])
--- OUTSIDE RECORDS SUMMARY | 2020-08-12 10:35 | CCD | Continuity of Care Document ---
Author Author Lucina REY [facility] Organization Unknown Address [address] [place] [address] Phone [phone] Care Team Providers Care Supervisor Dental Laboratory Name Role Phone Amos Mansfield MD AUTM [phone] Oliver Turner MD AUTM [phone] [facility] Cardiology AUTM [phone] [facility] Women's [facility] - Obstetrics & Gynecology AUTM [phone] Gastroenterology & Hepatology AUTM [phone] Problems Description No Active Problems Social History Type Date Description Comments Sex Unknown Tobacco Use Start: Unknown End: Unknown denies cigarette use Tobacco Use Start: Unknown Never Used Smokeless Tobacco ETOH Use Denies alcohol use Tobacco Use Start: Unknown Patient has never smoked Recreational Drug Use Denies Drug Use Smoking Status Reviewed: 08/02/20 Patient has never smoked Exercise Type/Frequency Exercises regularly Tattoo/Piercing Pierced ears Sun Exposure Uses sunscreen Seat Belt/Car Seat Always uses seat belt Bike Helmet Always Smoke Alarms Yes Smoke Alarms Carbon Monoxide Detector: Yes Allergies, Adverse Reactions, Alerts Active Allergies Reaction Severity Comments Date Egg Whites 03/27/2017 Egg Yolk (Chicken) Allergenic Extract 03/27/2017 Dust Mites 03/27/2017 Mold 03/27/2017 Inactive Allergies NKDA 01/14/2003 Medications Active Medications SIG Qnty Indications Ordering Provide r Date Proair HFA 108(90Base) mcg/Act Aer osol 2 puffs every 4 hours as needed for cough 25.5gm Gretchen Carpio M.D. 12/28/2019 Claritin 10mg Tablets 1 by mouth every day Unknown Vitamin B 12 500mcg Tablets 1 by mouth every day Unknown Ibuprofen 200mg Tablets 2 tabs by mouth every 6 hours as needed for pain, take with food Unknown History Medications Tobramycin 0.3% Solution 2 drops both eyes three times a day for 5 days 1units H10.89 Gretchen Carpio M.D. 04/10/2020 - 08/02/2020 Diflucan 150mg Tablets one tablet every 3 days 2tabs Fatimah Rey FNP 04/07/2020 - 04/10/2020 Immunizations Description No Information Available Vital Signs Date Vital Result Comment 08/02/2020 10:23am BP Systolic 112 mmHg BP Diastolic 85 mmHg Heart Rate 93 /min Body Temperature 97.0 F Respiratory Rate 16 /min Height 64 inches 5'4" Weight 217.38 lb O2 % BldC Oximetry 98 % Peak Expiratory Flow Rate 361 Estimated Peak Flow Rate [place] Body Weight 120 lb BMI (Body Mass Index) 37.3 kg/m2 04/10/2020 2:02pm BP Systolic 132 mmHg BP Diastolic 69 mmHg Heart Rate 63 /min Body Temperature 98.5 F Respiratory Rate 16 /min Height 64 inches 5'4" Weight 219.00 lb O2 % BldC Oximetry 100 % Peak Expiratory Flow Rate 361 Estimated Peak Flow Rate [place] Body Weight 120 lb BMI (Body Mass Index) 37.6 kg/m2 Results Test Acquired Date Facility Test Result H/L Range Note CBC With Differential 08/02/2020 [facility] [phone] White Blood Count 12.2 10 High 4.0-10.0 Red Blood Count 5.18 10 Normal 4.00-5.40 Hemoglobin 15.1 g/dL Normal 12.0-15.5 Hematocrit 47.4 % High 36.0-47.0 Mean Corpuscular Volume 91.5 fl Normal 80.0-96.0 Mean Corpuscular Hemoglobin 29.2 pg Normal 27.0-33.0 Mean Corpuscular HGB Conc 31.9 g/dL Low 32.0-36.5 Red Cell Distribution Width 12.6 % Normal 11.5-14.5 Platelet Count, Automated 200 10 Normal 150-450 Neutrophils % 75.2 % High 36.0-66.0 Lymph % 16.9 % Low 24.0-44.0 [place] % 5.8 % High 0.0-5.0 Eos % 0.6 % Normal 0.0-3.0 Baso % 0.3 % Normal 0.0-1.0 Immature Granulocyte % 1.2 % Normal 0-3.0 Nucleated Red Blood Cell % 0.0 % Normal 0-0 Neutrophils # 9.2 10 High 1.5-8.5 Lymph # 2.1 10 Normal 1.5-5.0 [place] # 0.7 10 Normal 0.0-0.8 Eos # 0.1 10 Normal 0.0-0.5 Baso # 0.0 10 Normal 0.0-0.2 Comprehensive Metabolic Profil 08/02/2020 [facility] [phone] Glucose, Fasting 86 mg/dL Normal 70-100 Blood Urea Nitrogen 10 mg/dL Normal 7-18 Creatinine For GFR 0.95 mg/dL Normal 0.55-1.30 Glomerular Filtration Rate > 60.0 Normal >58 1 Sodium Level 139 mEq/L Normal 136-145 Potassium Serum 4.0 mEq/L Normal 3.5-5.1 Chloride Level 105 mEq/L Normal 98-107 Carbon Dioxide Level 30 mEq/L Normal 21-32 Anion Gap 4 mEq/L Low 8-16 Calcium Level 8.5 mg/dL Normal 8.5-10.1 Ast/Sgot 8 U/L Normal 7-37 Alt/SGPT 20 U/L Normal 12-78 Alkaline Phosphatase 74 U/L Normal 45-117 Bilirubin,Total 0.5 mg/dL Normal 0.2-1.0 Total Protein 7.0 GM/DL Normal 6.4-8.2 Albumin 3.5 GM/DL Normal 3.2-5.2 Albumin/Globulin Ratio 1.0 Low 1.2-2.2 Laboratory test finding 08/02/2020 [facility] [phone] Erythrocyte Sedimentation Rate 6 mm/hr Normal 0 -20 C Reactive Protein Quantitativ 1.29 mg/dL High 0.00-0.30 CPK Creatine Phosphokinase 36 U/L Normal 26-192 Magnesium Level 2.3 mg/dL Normal 1.8-2.4 1 Units are mL/min/1.73 m2 Chronic Kidney Disease Staging per NKF: Stage I & II GFR >=60 Normal to Mildly Decreased Stage III GFR 30-59 Moderately Decreased Stage IV GFR 15-29 Severely Decreased Stage V GFR <15 Very Little GFR Left ESRD GFR <15 on LAW FIRM RECEPTIONIST Procedures Date Code Description Status 07/09/2016 [id number] Mammogram Completed Medical Devices Description No Information Available Encounters Type Date Location Provider Dx Diagnosis Office Visit 08/02/2020 10:00a Main Office Fatimah Rey FNP M79.6 62 Pain in left lower leg Office Visit 07/31/2020 10:00a Main Office Fatimah Rey FNP M79.6 62 Pain in left lower leg Office Visit 04/10/2020 1:45p Main Office Gretchen Carpio M.D. H 10.89 Other conjunctivitis Assessments Date Code Description Provider 08/02/2020 M79.662 Pain in left lower leg Fatimah Rey FNP 07/31/2020 M79.662 Pain of left calf Vickey Rey, ROOFING PLANT SUPERVISOR 04/10/2020 H10.89 Other conjunctivitis Angelica Carpio M.D. Plan of Treatment 08/02/2020 - Fatimah Rey, ROOFING PLANT SUPERVISOR* M79.662 Pain in left lower leg* Comments:* U/S negative for DVT. I have concerns for ischemia secondary to COVID. Will get labs and CTA to further evaluate. Functional Status Functional Condition Comment Date Status Glasses Active Independent with all ADL's Activ e Independent with all IADL's Acti ve Mental Status Mental Condition Comment Date Status None Active Referrals Description No Information Available
--- OUTSIDE RECORDS SUMMARY | 2020-08-12 10:35 | CCD | Continuity of Care Document ---
Author Author Lucina REY Organization Unknown Address [address] [place] [address] Phone [phone] Care Team Providers Care Financial Systems Analyst Name Role Phone Amos Mansfield MD AUTM [phone] Oliver Turner MD AUTM [phone] [facility] Cardiology AUTM [phone] [facility] Women's [facility] - Obstetrics & Gynecology AUTM [phone] Gastroenterology & Hepatology AUTM [phone] Problems Description No Active Problems Social History [...] SIG Qnty Indications Ordering Provide r Date Prednisone 10mg Tablets take 4 pills x 3 days. 3 pills x 3 days. 2 pills x 3 days. 1 pill x 3 days. 1/2 pill x 4 days. 42tabs Fatimah Rey FNP 08/04/2020 Proair HFA 108(90Base) mcg/Act Aer osol 2 [...] Flow Rate 361 Estimated Peak Flow Rate [place] Body Weight 120 lb BMI (Body Mass Index) 37.3 kg/m2 04/10/2020 2:02pm BP Systolic 132 mmHg BP Diastolic 69 mmHg Heart Rate 63 /min Body Temperature 98.5 F Respiratory Rate 16 /min Height 64 inches 5'4" Weight 219.00 lb O2 % BldC Oximetry 100 % Peak Expiratory Flow Rate 361 Estimated Peak Flow Rate [place] Body Weight 120 lb BMI (Body Mass Index) 37.6 kg/m2 Results Test Acquired Date Facility Test Result H/L Range Note CBC With Differential 08/02/2020 [facility] [phone] White Blood Count 12.2 10 High 4.0-10.0 [...] 36.0-66.0 Lymph % 16.9 % Low 24.0-44.0 [place] % 5.8 % High 0.0-5.0 Eos % 0.6 % Normal 0.0-3.0 Baso % 0.3 % Normal 0.0-1.0 Immature Granulocyte % 1.2 % Normal 0-3.0 Nucleated Red Blood Cell % 0.0 % Normal 0-0 Neutrophils # 9.2 10 High 1.5-8.5 Lymph # 2.1 10 Normal 1.5-5.0 [place] # 0.7 10 Normal 0.0-0.8 Eos # 0.1 10 Normal 0.0-0.5 Baso # 0.0 10 Normal 0.0-0.2 Comprehensive Metabolic Profil 08/02/2020 [facility] [phone] Glucose, Fasting 86 mg/dL Normal 70-100 Blood [...] 1.0 Low 1.2-2.2 Laboratory test finding 08/02/2020 [facility] [phone] Erythrocyte Sedimentation Rate 6 mm/hr Normal 0 [...] Little GFR Left ESRD GFR <15 on SOFTWARE ASSET MANAGEMENT ANALYST Procedures Date Code Description Status 07/09/2016 [id number] Mammogram Completed Medical Devices Description No Information Available Encounters Type Date Location Provider Dx Diagnosis Office Visit 08/02/2020 10:00a Main Office Fatimah Rey, DIRECTOR STERILE PROCESSING M79.6 62 Pain in left lower leg Office Visit 07/31/2020 10:00a Main Office PleFatimah rodriguez, DIRECTOR STERILE PROCESSING M79.6 62 Pain in left lower leg Office Visit 04/10/2020 1:45p Main Office Gretchen Carpio M.D. H 10.89 Other conjunctivitis Assessments Date Code Description Provider 08/02/2020 M79.662 Pain in left lower leg PleFatimah rodriguez, DIRECTOR STERILE PROCESSING 07/31/2020 M79.662 Pain of left calf PleskachVickey, DIRECTOR STERILE PROCESSING 04/10/2020 H10.89 Other conjunctivitis Angelica Carpio M.D. Plan of Treatment 08/02/2020 - Fatimah Rey, DIRECTOR STERILE PROCESSING* M79.662 Pain in left lower leg* Comments:* [...]
--- OUTSIDE RECORDS SUMMARY | 2020-08-12 10:35 | CCD | Continuity of Care Document ---
Author Author Lucina REY [facility] Organization Unknown Address [address] [place] [address] Phone [phone] Care Team Providers Care Pot Builder Name Role Phone Amos Mansfield MD AUTM [phone] Oliver Turner MD AUTM [phone] [facility] Cardiology AUTM [phone] [facility] Women's [facility] - Obstetrics & Gynecology AUTM [phone] Gastroenterology & Hepatology AUTM [phone] Problems Description No Active Problems Social History Type Date Description Comments Sex Unknown Tobacco Use Start: Unknown End: Unknown denies cigarette use Tobacco Use Start: Unknown Never Used Smokeless Tobacco ETOH Use Denies alcohol use Tobacco Use Start: Unknown Patient has never smoked Recreational Drug Use Denies Drug Use Smoking Status Reviewed: 04/10/20 Patient has never smoked Exercise Type/Frequency Exercises [...] SIG Qnty Indications Ordering Provide r Date Tobramycin 0.3% Solution 2 drops both eyes three times a day for 5 days 1units H10.89 Gretchen Carpio M.D. 04/10/2020 Proair HFA 108(90Base) mcg/Act Aer osol 2 puffs every 4 hours as needed for cough 25.5gm Gretchen Carpio M.D. 12/28/2019 Claritin 10mg Tablets 1 by mouth every day Unknown Vitamin B 12 500mcg Tablets 1 by mouth every day Unknown History Medications Diflucan 150mg Tablets one tablet every 3 days 2tabs Fatimah Rey FNP 04/07/2020 - 04/10/2020 Immunizations Description No Information Available Vital Signs Date Vital Result Comment 04/10/2020 2:02pm BP Systolic 132 mmHg BP Diastolic 69 mmHg Heart Rate 63 /min Body Temperature 98.5 F Respiratory Rate 16 /min Height 64 inches 5'4" Weight 219.00 lb O2 % BldC Oximetry 100 % Peak Expiratory Flow Rate 361 Estimated Peak Flow Rate [place] Body Weight 120 lb BMI (Body Mass Index) 37.6 kg/m2 12/28/2019 11:25am BP Systolic 130 mmHg BP Diastolic 75 mmHg Heart Rate 65 /min Body Temperature 97.9 F Respiratory Rate 15 /min Height 64 inches 5'4" Weight 223.38 lb O2 % BldC Oximetry 96 % Peak Expiratory Flow Rate 361 Estimated Peak Flow Rate [place] Body Weight 120 lb BMI (Body Mass Index) 38.3 kg/m2 Results Description No Information Available Procedures Date Code Description Status 07/09/2016 62692346 Mammogram Completed Medical Devices Description No Information Available Encounters Type Date Location Provider Dx Diagnosis Office Visit 04/10/2020 1:45p Main Office Gretchen Carpio M.D. H 10.89 Other conjunctivitis Assessments Date Code Description Provider 04/10/2020 H10.89 Other conjunctivitis Angelica Carpio M.D. Plan of Treatment No Information Available Functional Status Functional Condition Comment Date Status Glasses Active Independent with all ADL's Activ e Independent with all IADL's Acti ve Mental Status Mental Condition Comment Date Status None Active Referrals Description No Information Available
--- OUTSIDE RECORDS SUMMARY | 2020-08-12 10:35 | CCD | Continuity of Care Document ---
Author Author Lucina REY [facility] Organization Unknown Address [address] [place] [address] Phone [phone] Care Team Providers Care Bale Opener Name Role Phone Amos Mansfield MD AUTM [phone] Oliver Turner MD AUTM [phone] [facility] Cardiology AUTM [phone] [facility] Women's [facility] - Obstetrics & Gynecology AUTM [phone] Gastroenterology & Hepatology AUTM [phone] Problems Description No Active Problems Social History [...] Flow Rate 361 Estimated Peak Flow Rate [place] Body Weight 120 lb BMI (Body Mass Index) 37.3 kg/m2 04/10/2020 2:02pm BP Systolic 132 mmHg BP Diastolic 69 mmHg Heart Rate 63 /min Body Temperature 98.5 F Respiratory Rate 16 /min Height 64 inches 5'4" Weight 219.00 lb O2 % BldC Oximetry 100 % Peak Expiratory Flow Rate 361 Estimated Peak Flow Rate [place] Body Weight 120 lb BMI (Body Mass Index) 37.6 kg/m2 Results Description No Information Available Procedures Date Code Description Status 07/09/2016 [id number] Mammogram Completed Medical Devices Description No Information Available Encounters Type Date Location Provider Dx Diagnosis Office Visit 07/31/2020 10:00a Main Office Fatimah Rey FNP M79.6 62 Pain in left lower leg Office Visit 04/10/2020 1:45p Main Office Gretchen Carpio M.D. H 10.89 Other conjunctivitis Assessments Date Code Description Provider 08/02/2020 M79.662 Pain in left lower leg Fatimah Rey FNP 07/31/2020 M79.662 Pain of left calf Vickey Rey FNP 04/10/2020 H10.89 Other conjunctivitis Angelica Carpio M.D. Plan of Treatment 08/02/2020 - Fatimah Rey FNP* M79.662 Pain in left lower leg* New Labs:* CBC With Differential, Scheduled: 08/02/20 * Comprehensive Metabolic Profil, Scheduled: 08/02/20 * Erythrocyte Sedimentation Rate, Scheduled: 08/02/20 * High Sensitivity C-Reactive Protein, Scheduled: 08/02/20 * CPK Creatine Phosphokinase, Scheduled: 08/02/20 * Magnesium Level, Scheduled: 08/02/20 Functional Status Functional Condition Comment Date Status Glasses Active Independent with all ADL's Activ e Independent with all IADL's Acti ve Mental Status Mental Condition Comment Date Status None Active Referrals Description No Information Available
--- OUTSIDE RECORDS SUMMARY | 2020-08-12 10:35 | CCD | Continuity of Care Document ---
Author Author Lucina REY Organization Unknown Address [address] [place] [address] Phone [phone] Care Team Providers Care Optometrist Name Role Phone Amos Mansfield MD AUTM [phone] Oliver Turner MD AUTM [phone] [facility] Cardiology AUTM [phone] [facility] - Obstetrics & Gynecology AUTM [phone] Gastroenterology & [facility]ology of [facility] AUTM [phone] Problems Description No Active Problems Social History Type Date Description Comments Sex Unknown Tobacco Use Start: Unknown End: Unknown denies cigarette use Tobacco Use Start: Unknown Never Used Smokeless Tobacco ETOH Use Denies alcohol use Tobacco Use Start: Unknown Patient has never smoked Recreational Drug Use Denies Drug Use Smoking Status Reviewed: 08/10/20 Patient has never smoked Exercise Type/Frequency Exercises [...] SIG Qnty Indications Ordering Provide r Date Cyclobenzaprine HCL 10mg Tablets 1/2 to 1 by mouth three times a day as needed 30tabs M79.662 Juan Francisco Rey FNP 08/10/2020 Prednisone 10mg Tablets take 4 pills x [...] needed for pain, take with food Unknown Pepcid 20mg Tablets 1 by mouth every day Unknown History Medications Tobramycin 0.3% Solution 2 drops both eyes three times a day for 5 days 1units H10.89 Gretchen Carpio M.D. 04/10/2020 - 08/02/2020 Diflucan 150mg Tablets one tablet every 3 days 2tabs Fatimah Rey FNP 04/07/2020 - 04/10/2020 Immunizations Description No Information Available Vital Signs Date Vital Result Comment 08/10/2020 1:24pm BP Systolic 116 mmHg BP Diastolic 76 mmHg Heart Rate 90 /min Body Temperature 96.8 F Respiratory Rate 15 /min Height 64 inches 5'4" Weight 221.38 lb O2 % BldC Oximetry 98 % Peak Expiratory Flow Rate 359 Estimated Peak Flow Rate [place] Body Weight 120 lb BMI (Body Mass Index) 38.0 kg/m2 08/02/2020 10:23am BP Systolic 112 mmHg BP Diastolic 85 mmHg Heart Rate 93 /min Body Temperature 97.0 F Respiratory Rate 16 /min Height 64 inches 5'4" Weight 217.38 lb O2 % BldC Oximetry 98 % Peak Expiratory Flow Rate 361 Estimated Peak Flow Rate [place] Body Weight 120 lb BMI (Body Mass Index) 37.3 kg/m2 Results Test Acquired Date Facility Test Result H/L Range Note CBC With Differential 08/02/2020 [facility] [phone] White Blood Count 12.2 10 High 4.0-10.0 [...] 36.0-66.0 Lymph % 16.9 % Low 24.0-44.0 [place] % 5.8 % High 0.0-5.0 Eos % 0.6 % Normal 0.0-3.0 Baso % 0.3 % Normal 0.0-1.0 Immature Granulocyte % 1.2 % Normal 0-3.0 Nucleated Red Blood Cell % 0.0 % Normal 0-0 Neutrophils # 9.2 10 High 1.5-8.5 Lymph # 2.1 10 Normal 1.5-5.0 [place] # 0.7 10 Normal 0.0-0.8 Eos # 0.1 10 Normal 0.0-0.5 Baso # 0.0 10 Normal 0.0-0.2 Comprehensive Metabolic Profil 08/02/2020 [facility] [phone] Glucose, Fasting 86 mg/dL Normal 70-100 Blood [...] 1.0 Low 1.2-2.2 Laboratory test finding 08/02/2020 [facility] [phone] Erythrocyte Sedimentation Rate 6 mm/hr Normal 0 [...] Little GFR Left ESRD GFR <15 on [employer] Procedures Date Code Description Status 07/09/2016 [id number] Mammogram Completed Medical Devices Description No Information Available Encounters Type Date Location Provider Dx Diagnosis Office Visit 08/02/2020 10:00a Main Office Fatimah Rey HUMAN RESOURCES ANALYST M79.6 62 Pain in left lower leg Office Visit 07/31/2020 10:00a Main Office Fatimah Rey HUMAN RESOURCES ANALYST M79.6 62 Pain in left lower leg Office Visit 04/10/2020 1:45p Main Office Gretchen Carpio M.D. H 10.89 Other conjunctivitis Assessments Date Code Description Provider 08/10/2020 R07.89 Other chest pain Fatimah Rey , HUMAN RESOURCES ANALYST 08/10/2020 R06.02 Shortness of breath Jae Reyy, HUMAN RESOURCES ANALYST 08/10/2020 R05 Cough PleskVickey bryanty, HUMAN RESOURCES ANALYST 08/10/2020 M79.662 Pain in left lower leg PletrevorachVickeyy, HUMAN RESOURCES ANALYST 08/02/2020 M79.662 Pain in left lower leg Pleskach, Fatimah, HUMAN RESOURCES ANALYST 07/31/2020 M79.662 Pain of left calf PleskachVickey y, HUMAN RESOURCES ANALYST 04/10/2020 H10.89 Other conjunctivitis Angelica Carpio M.D. Plan of Treatment 08/10/2020 - PleFatimah rodriguez, HUMAN RESOURCES ANALYST* R07.89 Other chest pain* Comments:* Concern for PE vs PNA, will get CTA * R06.02 Shortness of breath* Comments:* as above * R05 Cough * M79.662 Pain in left lower leg* New Medication:* Cyclobenzaprine HCL 10 mg - 1/2 to 1 by mouth three times a day as needed * Comments:* give muscle relaxer for prn use Functional Status Functional Condition Comment Date Status Glasses Active Independent with all ADL's Activ e Independent with all IADL's Acti ve Mental Status Mental Condition Comment Date Status None Active Referrals Description No Information Available
--- NOTE | 2020-08-12 11:00 | REP ---
INDICATION: DYSPNEA/COUGH. COMPARISON: 10/26/2015. TECHNIQUE: SINGLE PORTABLE AP VIEW OF THE CHEST WAS PERFORMED. FINDINGS: THERE IS NO ACUTE INFILTRATE OR PULMONARY EDEMA. LUNGS ARE CLEAR. HEART IS NOT SIGNIFICANTLY ENLARGED. MEDIASTINAL SILHOUETTE IS UNREMARKABLE. THE VISUALIZED OSSEOUS STRUCTURES ARE INTACT. IMPRESSION: NO ACUTE PULMONARY DISEASE. <Electronically signed by Antoni Yu > 08/12/20 1056
[2020-08-12 11:12] LABS: BASO % 0.3 % (0.0-1.0); EOS % 0.1 % (0.0-3.0); HEMATOCRIT 44.7 % (36.0-47.0); HEMOGLOBIN 14.5 g/dl (12.0-15.5); LYMPH # 0.9 10^3/uL (1.5-5.0); MEAN CORPUSCULAR HEMOGLOBIN 29.1 pg (27.0-33.0); MEAN CORPUSCULAR HGB CONC 32.4 g/dl (32.0-36.5); MEAN CORPUSCULAR VOLUME 89.6 fl (80.0-96.0); MONO # 0.3 10^3/uL (0.0-0.8); MONO % 2.7 % (0.0-5.0); NEUTROPHILS # 10.4 10^3/uL (1.5-8.5); NEUTROPHILS % 88.2 % (36.0-66.0); PLATELET COUNT, AUTOMATED 328 10^3/uL (150-450); RED BLOOD COUNT 4.99 10^6/uL (4.00-5.40); WHITE BLOOD COUNT 11.8 10^3/uL (4.0-10.0)
--- OUTSIDE RECORDS SUMMARY | 2020-08-12 11:17 | CCD ---
Author Author [facility] Organization [facility] Address Unknown Phone Unavailable Care Team Providers Care Adobe Maker Name Role Phone Macario Carpio MD Unavailable [...] M Estephania PA Unavailable Unavailable Scordo, M Etsephania PA Unavailable Unavailable Scordo, M Estephania PA Unavailable Unavailable Pleskach, Fatimah POWER DRIVEN BRUSH MAKER Unavailable Unavailable Pleskach, Fatimah POWER DRIVEN BRUSH MAKER Unavailable Unavailable Pleskach, Fatimah POWER DRIVEN BRUSH MAKER Unavailable Unavailable P[place]kach, Fatimah POWER DRIVEN BRUSH MAKER Unavailable Unavailable [place], Fatimah POWER DRIVEN BRUSH MAKER Unavailable Unavailable [place], Fatimah POWER DRIVEN BRUSH MAKER Unavailable Unavailable [place], Fatimah POWER DRIVEN BRUSH MAKER Unavailable Unavailable [place], Fatimah POWER DRIVEN BRUSH MAKER Unavailable Unavailable [place], Fatimah POWER DRIVEN BRUSH MAKER Unavailable Unavailable [place], Fatimah POWER DRIVEN BRUSH MAKER Unavailable Unavailable [place], Fatimah POWER DRIVEN BRUSH MAKER Unavailable Unavailable [place], Fatimah POWER DRIVEN BRUSH MAKER Unavailable Unavailable [place], Fatimah POWER DRIVEN BRUSH MAKER Unavailable Unavailable [place], Fatimah POWER DRIVEN BRUSH MAKER Unavailable Unavailable [place], Fatimah POWER DRIVEN BRUSH MAKER Unavailable Unavailable [place], Fatimah POWER DRIVEN BRUSH MAKER Unavailable Unavailable [place], Fatimah POWER DRIVEN BRUSH MAKER Unavailable Unavailable P[place], Fatimah POWER DRIVEN BRUSH MAKER Unavailable Unavailable [place], Fatimah POWER DRIVEN BRUSH MAKER Unavailable Unavailable [place], Fatimah POWER DRIVEN BRUSH MAKER Unavailable Unavailable [place], Fatimah POWER DRIVEN BRUSH MAKER Unavailable Unavailable [place], Fatimah POWER DRIVEN BRUSH MAKER Unavailable Unavailable [place], Fatimah POWER DRIVEN BRUSH MAKER Unavailable Unavailable P[place], Fatimah POWER DRIVEN BRUSH MAKER Unavailable Unavailable P[place]kach, Fatimah POWER DRIVEN BRUSH MAKER Unavailable Unavailable P[place]kach, Fatimah POWER DRIVEN BRUSH MAKER Unavailable Unavailable [place], Fatimah POWER DRIVEN BRUSH MAKER Unavailable Unavailable [place], Fatimah POWER DRIVEN BRUSH MAKER Unavailable Unavailable YAN, JEMMA PA Unavailable Unavailable AYN, JEMMA PA Unavailable Unavailable YAN, JEMMA PA [...] YAN, JEMMA PA Unavailable Unavailable Angeles, Tiesha FLAP LINING BINDER Unavailable Unavailable Angeles, Tiesha FLAP LINING BINDER Unavailable Unavailable [place], Tiesha FLAP LINING BINDER Unavailable Unavailable [place], Tiesha FLAP LINING BINDER Unavailable Unavailable [place], Tiesha FLAP LINING BINDER Unavailable Unavailable [place], Tiesha FLAP LINING BINDER Unavailable Unavailable [place], Tiesha FLAP LINING BINDER Unavailable Unavailable [place], Tiesha FLAP LINING BINDER Unavailable Unavailable [place], Tiesha FLAP LINING BINDER Unavailable Unavailable [place], Tiesha FLAP LINING BINDER Unavailable Unavailable [place], Tiesha FLAP LINING BINDER Unavailable Unavailable Re-disclosure Warning The records that [...] is protected by Article 27-F of the [facility] Public Health law. If you continue you may have access to information: Regarding HIV / AIDS; Provided by facilities licensed or operated by the [facility] Office of Mental Health; or Provided by the [facility] Office for People With Developmental Disabilities. If such information is present, then the following [facility] mandated warning applies: This information has [...] law may result in a fine or snf sentence or both. A general authorization for the release of medical or other information is NOT sufficient authorization for further disc losure. Family History Family Member Name Family Member Gender Family Member Status Date o f Status Description Data Source(s) Unknown Unknown Problem [facility] ([facility]) Unknown Unknown Problem [facility] ([facility] Unknown Unknown Problem [facility] ([facility] Unknown Unknown Problem [facility] Unknown Unknown Problem [facility] ([facility] Encounters Encounter Providers Location Date Indications Data Source(s ) Outpatient Attender: Fatimah Rey [facility] Main Office 08/02/2020 0 9:00:00 AM EST [facility] ([facility] Outpatient Attender: Fatimah Rey [facility] Main Office 07/31/2020 0 9:00:00 AM EST [facility] ([facility] Outpatient Attender: Gretchen Carpio MD Main Office 04/10/2020 01:45:0 0 PM EDT [facility] ([facility] Outpatient Attender: JEMMA ramirez 03/20/2020 05:05:00 PM EDT [facility] ([facility]) Outpatient Attender: Estephania RIVERA Main Office 12/28/2019 11:00:00 AM EDT [facility] ([facility] Outpatient Attender: Fatimah ALLENP Main Office 10/26/2019 0 9:30:00 AM EDT [facility] ([facility] Outpatient Attender: Tiesha Mckee chevy 09/22/2019 03:45:00 PM EST [facility] ([facility]) Medications Medication Brand Name Start Date [...] 03/20/2020 12:00:00 AM EDT ORAL active MED[facility] ([facility]) 200 ACTUAT Albuterol 0.09 MG/ACTUAT Dry [...] 09/22/2019 12:00:00 AM EST ORAL completed MED[facility] ([facility]) Dexamethasone Sodium Phosphate Dexamethasone Sodium Phosphat e 06/18/2019 12:00:00 AM EST active M EDENT ([facility] ) Insurance Providers Payer name Policy type / Coverage type Policy ID Covered democrat ID Covered democrat's relationship to lea Policy Lea Plan Information [employer] [id number] HU2 [id number] [facility] [place] [id number] P [id number] AEST. [facility] RUTH O [id number] P [id number] EXCELLUS BCBS B [id number] P TNY [id number] [employer] [place] [id number] SP [id number] LIFETIME BENEFIT SOLUTIONS [id number] HU2 [id number] SELF PAY ONLY BCBS [place] PPO [id number] [id number] CIGNA U [id number] Self [id number] BS Of [facility] Health Maintenance Organization ([facility]) [id number] Family Dependent [id number] [facility]/POS [id number] BC/BS Of [facility] Commercial [id number] Family Dependent [id number] BS Of [facility] ([facility]) [id number] Family Dependent [id number] BS Of [facility] ([facility]) [id number] Family Dependent [id number] EXCELLUS BCBS PI PI EXCELLUS BCBS [id number] Spo TNY [id number] EXCELLUS BCBS [id number] Spo TNY [id number] Cigna/MVP/Preferred Care Medigap Part B Family Dep endent BCBS [facility] Part B Family Dependent Cigna Healthcare Medigap Part B Family Dependent Cigna/[place] General Medigap Part B Self BC/BS Of [place] Medigap Part B Family Dependent Blue Ppo Medigap Part B Family Dependent Cigna/MVP Medigap Part B Self BCBS Excellus Ppo U/W Commercial Family Dependent BS Of [facility] Maintenance Organization ([facility]) Family Dependent CIGNA HEALTHCARE [id number] [id number] BC[facility]BS [facility] Part B Family Dep endent Cigna Commercial Family Dependent CIGNA HEALTHCARE-O/P [id number] CIGNA/MVP/CONN GEN/PREFE P [id number] P [id number] Surgeries/Procedures Procedure Description Date Indications Data Source(s) THERAPEUTIC PX 1/> AREAS EACH 15 MIN EXERCISES 019 12:00:00 AM EST [facility] ([facility]) MANUAL THERAPY TQS 1/> REGIONS EACH 15 MINUTES 019 12:00:00 AM EST [facility] ([facility]) Results ID Date Data Source [id number] 08/03/2020 12:00:00 AM EST [facility] Cardoza Patient Name: IMANI [id number] Date of : 1970[place] [address] Date of Exam: 08/03/2020#: Fax: [phone] EXAM: [...] left lower extremity CT angiography.Accredited by the [employer] in [place].NAREN Bergeron/Blanca merritt for referring IMANI SEO to our office. Electronically Signed - CANDE CRUMP MD 08/03/20 16:08 Name Value Range Interpretation Code Description Data Georgette rce(s) Supporting Document(s) ID Date Data Source [id number] 08/02/2020 11:25:00 AM EST [facility] ([facility] [...] [facility] ID Date Data Source [id number] 08/02/2020 11:25:00 AM EST [facility] ([facility] Carpio [...] Little GFR Left</content>
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
<content></content> Sodium Level 139 meq/L 136-145 MEDENT [...] P.C.) Bilirubin,Total 0.5 mg/dL 0.2-1.0 [facility] ([facility] Total Protein 7.0 GM/DL 6.4-8.2 [facility] ([facility] Alkaline Phosphatase 74 U/L 45-117 [facility] ([facility] Albumin 3.5 GM/DL 3.2-5.2 [facility] ([facility] Albumin/Globulin Ratio 1.0 1.2-2.2 [facility] ([facility] ID Date Data Source [id number] 08/02/2020 11:25:00 AM EST [facility] ([facility]chen Carpio [...] % 24.0-44.0 [facility] ([facility] Saunders % 5.8 % 0.0-5.0 [facility] (Gretchen rodarte [...] 10 1.5-5.0 [facility] ([facility] Saunders # 0.7 10 0.0-0.8 [facility] ([facility] Eos # 0.1 10 0.0-0.5 [facility] ([facility] Baso # 0.0 10 0.0-0.2 [facility] ([facility] ID Date Data Source [id number] 07/24/2020 12:00:00 AM EST [facility] Name Value Range Interpretation Code Description Data Georgette rce(s) Supporting Document(s) SARS-CoV2 Rapid Antigen [facility] This lab was reported by [facility]. ID Date Data Source [id number] 01/07/2020 01:40:00 PM EDT [facility] ([facility] Name Value Range Interpretation Code Description Data Georgette rce(s) Supporting Document(s) HLA-B27 [Presence] by Probe and target amplification m mylaod Laboratory test result [facility] ([facility] HLA-B*27 Negative B27 allele interpretation for all loci based on IMGT/HLA database version 3.38 This test was developed and its performance characteristics determined by [facility]. It has not been cleared or approved by the Food and Drug Administration. [facility] Lab CLIA ID Number [id number] . This test was performed using PCR [...] [facility] ID Date Data Source [id number] 01/07/2020 01:40:00 PM EDT [facility] ([facility] Name Value Range Interpretation Code Description Data Georgette rce(s) Supporting Document(s) Antinuclear Antibodies Direct Laboratory test result [facility] ([facility] Performed at: [address] [id number] Paste Mixer Liquid: Marga Ashley MD, Phone: [phone] Performed at: [address] [place] [address] [id number] Paste Mixer Liquid: Graham Arambula PhD, Phone: [phone] ID Date Data Source [id number] 01/07/2020 01:40:00 PM EDT [facility] ([facility] Name Value Range Interpretation Code Description Data Georgette rce(s) Supporting Document(s) Erythrocyte sedimentation rate by 2H Westergren method 8 mm/hr 0-2 0 [facility] ([facility] C reactive protein [Mass/volume] in Serum or Plasma by High sensitivity method Laboratory test result 0.00-0.30 [facility] ([facility] ID Date Data Source [id number] 01/07/2020 01:40:00 PM EDT [facility] ([facility] Name Value Range Interpretation Code Description Data Georgette rce(s) Supporting Document(s) Lyme Disease IgG/IgM Antibodie Laboratory [...]
<content>gradually decline.</content>
<content></content> ID Date Data Source [id number] 01/07/2020 01:40:00 PM EDT [facility] ([facility] Name Value Range Interpretation Code Description Data Georgette rce(s) Supporting Document(s) Blood Urea Nitrogen 8 mg/dL [...] Little GFR Left</content>
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
<content></content> Potassium Serum 4.4 meq/L 3.5-5.1 MED[facility] [...] P.C.) Alt/SGPT 24 U/L 12-78 [facility] ([facility] Alkaline Phosphatase 77 U/L 45-117 [facility] ([facility] Bilirubin,Total 0.2 mg/dL 0.2-1.0 [facility] ([facility] Total Protein 6.6 GM/DL 6.4-8.2 [facility] ([facility] Albumin/Globulin Ratio 1.1 1.2-2.2 [facility] ([facility] Albumin 3.4 GM/DL 3.2-5.2 [facility] ([facility] ID Date Data Source [id number] 01/07/2020 01:40:00 PM EDT [facility] ([facility] Name Value Range Interpretation Code Description Data Georgette rce(s) Supporting Document(s) Red Blood Count 4.45 10 4.00-5.40 [facility] ([facility] Hemoglobin 13.2 g/dL 12.0-15.5 [...] % 36.0-66.0 [facility] ([facility] Saunders % 5.4 % 0.0-5.0 [facility] ([facility] Baso % 0.7 % 0.0-1.0 [facility] ([facility] Immature Granulocyte % 0.3 % 0-3.0 [facility] ([facility] Eos % 2.2 % 0.0-3.0 [facility] ([facility] Nucleated Red Blood Cell % 0.0 % 0-0 MED E[facility] ([facility] Saunders # 0.3 10 0.0-0.8 [facility] (Gretchen rodarte [...] co mpleted Patient has never smoked [facility] ([facility]) Vital Signs ID Date Data Source UNK Name Value Range Interpretation Code Description Data Source(s) Body mass index (BMI) [Ratio] 38.0 kg/m2 38.0 k g/m2 [facility] ([facility] [place] body weight 120 [lb_av] 120 [lb_av] MED[facility] T ([facility] Oxygen saturation in Arterial blood by Pulse oximetry 98 % 98 % [facility] ([facility] Body weight 221.38 [lb_av] [...] k g/m2 [facility] ([facility] [place] body weight 120 [lb_av] 120 [lb_av] MEDEN [...] k g/m2 [facility] ([facility] [place] body weight 120 [lb_av] 120 [lb_av] MED[facility] T ([facility] Oxygen saturation in Arterial blood by Pulse oximetry 100 % 100 % [facility] ([facility] Body weight 219.00 [lb_av] 219.00 [lb_av] [facility] T ([facility] Body height 64 [in_i] 64 [in_i] [facility] ([facility] 5'4" Respiratory rate 16 /min 16 /min [facility] ( [facility] Body temperature 98.5 [degF] 98.5 [degF] [facility] ([facility] Heart rate 63 /min 63 /min [facility] ([facility] Diastolic blood pressure 69 mm[Hg] 69 mm[Hg] [facility] ([facility] Systolic blood pressure 132 mm[Hg] 132 mm[Hg] [facility] ([facility] Body mass index (BMI) [Ratio] 37.4 kg/m2 37.4 k g/m2 [facility] ([facility]) Body height 64 [in_i] 64 [in_i] MED[facility] ([facility]) 5'4" Body weight 218.00 [lb_av] 218.00 [lb_av] MEDEN T ([facility]) Body temperature 102.2 [degF] 102.2 [degF] MEDE NT ([facility]) Oxygen saturation in Arterial blood by Pulse oximetry 99 % 99 % [facility] ([facility]) Res[facility] 12 /min 12 /[facility] Heart rate 99 /min 99 /min [facility] ([facility]) Diastolic blood pressure 71 mm[Hg] 71 mm[Hg] [facility] ([facility]) Systolic blood pressure 108 mm[Hg] 108 mm[Hg] [facility] ([facility]) Body mass index (BMI) [Ratio] 38.3 kg/m2 38.3 k g/m2 [facility] ([facility] [place] body weight 120 [lb_av] 120 [lb_av] MEDEN [...] Systolic blood pressure 130 mm[Hg] 130 mm[Hg] [facility] ([facility] Body mass index (BMI) [Ratio] 37.6 kg/m2 37.6 k g/m2 [facility] ([facility]) Body height 64 [in_i] 64 [in_i] MED[facility] ([facility]) 5'4" Body weight 219.00 [lb_av] 219.00 [lb_av] MEDEN T ([facility]) Body temperature 99.3 [degF] 99.3 [degF] [facility] ([facility]) Oxygen saturation in Arterial blood by Pulse oximetry 100 % 100 % [facility] ([facility]) Respiratory rate 12 /min 12 /min [facility] ( [facility]) Heart rate 86 /min 86 /min [facility] ([facility]) Diastolic blood pressure 77 mm[Hg] 77 mm[Hg] [facility] ([facility]) Systolic blood pressure 119 mm[Hg] 119 mm[Hg] [facility] ([facility])
[2020-08-12 11:30] LABS: CALCIUM LEVEL 9.1 MG/DL (8.5-10.1); CREATININE FOR GFR 1.12 MG/DL (0.55-1.30); GLOMERULAR FILTRATION RATE 55.5 (>58); POTASSIUM SERUM 4.6 MEQ/L (3.5-5.1)
[2020-08-12 12:18] VITALS: BP 121/62
--- NOTE | 2020-08-14 08:23 | ECGEPIP ---
[facility] - ED Test Date: 2020-08-12 Pat Name: IMANI OLMOS Department: Room: - Gender: Female Brake Lining Maker: arcelia : 1970 Requested By: YVAN GUO Order Number: [id number] Reading MD: Zee Cline Measurements Intervals [place] Rate: 69 P: 11 MD: 130 QRS: -7 QRSD: 77 T: 20 QT: 390 QTc: 419 Interpretive Statements SINUS RHYTHM NSTTW abnormalities SIMILAR 10/26/15 Electronically Signed on 08-14-2020 8:23:09 EST by Zee Cline
== END 2020-08-12 12:43 | disposition home or self-care (01) ==
LOC: M ED 10:27
DX: I26.99 Other pulmonary embolism without acute cor pulmonale (principal); Z87.09 Personal history of other diseases of the respiratory system; J45.909 Unspecified asthma, uncomplicated; Z79.899 Other long term (current) drug therapy

== ENCOUNTER 2020-08-22 09:58 | Emergency (ER) | payer OTHER ==
[~2020-08-22] VITALS: Ht 162.6 cm; Wt 99.4 kg
[2020-08-22] MEDS ORDERED: ELIQ5TAB (10:11)
[2020-08-22 10:45] LABS: BASO % 0.6 % (0.0-1.0); EOS # 0.1 10^3/uL (0.0-0.5); HEMATOCRIT 42.1 % (36.0-47.0); HEMOGLOBIN 13.3 g/dl (12.0-15.5); LYMPH # 1.5 10^3/uL (1.5-5.0); LYMPH % 29.3 % (24.0-44.0); MEAN CORPUSCULAR HEMOGLOBIN 28.9 pg (27.0-33.0); MEAN CORPUSCULAR HGB CONC 31.6 g/dl (32.0-36.5); MEAN CORPUSCULAR VOLUME 91.5 fl (80.0-96.0); MONO # 0.4 10^3/uL (0.0-0.8); MONO % 8.4 % (0.0-5.0); NEUTROPHILS % 59.3 % (36.0-66.0); PLATELET COUNT, AUTOMATED 228 10^3/uL (150-450); WHITE BLOOD COUNT 5.1 10^3/uL (4.0-10.0)
--- NOTE | 2020-08-22 10:45 | REP ---
INDICATION: CHEST PAIN COMPARISON: 10/26/2015, 08/12/2020 TECHNIQUE: Portable AP view of the chest FINDINGS: The mediastinum and cardiac silhouette are stable and within normal limits for portable technique. The lung beavers are clear without acute consolidation, effusion, or pneumothorax. Skeletal structures are intact. IMPRESSION: No acute cardiopulmonary process appreciated. <Electronically signed by Jose Hannah > 08/22/20 [id number]
[2020-08-22 11:18] LABS: ALBUMIN 3.4 GM/DL (3.2-5.2); ALT/SGPT 30 U/L (12-78); BILIRUBIN,DIRECT < 0.1 MG/DL (0.0-0.2); BILIRUBIN,TOTAL 0.3 MG/DL (0.2-1.0); BLOOD UREA NITROGEN 8 MG/DL (7-18); CALCIUM LEVEL 9.2 MG/DL (8.5-10.1); CARBON DIOXIDE LEVEL 28 MEQ/L (21-32); CHLORIDE LEVEL 107 MEQ/L (98-107); CREATININE FOR GFR 0.89 MG/DL (0.55-1.30); GLOMERULAR FILTRATION RATE > 60.0 (>58); GLUCOSE, FASTING 93 MG/DL (70-100); LIPASE 180 U/L (73-393); POTASSIUM SERUM 4.3 MEQ/L (3.5-5.1); SODIUM LEVEL 140 MEQ/L (136-145); TOTAL PROTEIN 6.9 GM/DL (6.4-8.2); TROPONIN I < 0.02 NG/ML (< 0.10)
[2020-08-22] MEDS ORDERED: ISOVUE-370 76% 100ML VIAL As Ordered ONE (11:26)
[2020-08-22 11:33] LABS: HCG, SERUM QUALITATIVE NEGATIVE (NEGATIVE)
--- NOTE | 2020-08-22 12:01 | REP ---
INDICATION: SOB and chest pain. COMPARISON: Comparison CT pulmonary angiogram 10 August 2020 showed bilateral lower lobe pulmonary emboli.. TECHNIQUE: Contrast dose: 75 ML of Isovue [address] technique: Helical scanning is acquired and overlapping 1.5 mm and contiguous 3 mm axial images are reformatted. In addition, maximum intensity projection and multiplanar re-formation images are generated in sagittal and coronal imaging projections. FINDINGS: There is good opacification in the pulmonary arterial tree. Small linear filling defects are again seen in the lower lobe pulmonary arterial tree unchanged in distribution from the August 10, 2020 prior study. The thrombi visible in the right lower lobe pulmonary artery branches are slightly smaller. No new pulmonary embolus is seen. Homogeneous opacity is seen in the thoracic aorta. There is no evidence of aneurysm or dissection. Lung window settings demonstrate no evidence of infiltrate or atelectasis. No pleural or pericardial effusion is seen. No hilar or mediastinal mass or adenopathy is observed. In the upper abdomen, normal adrenals are observed. The visualized upper abdominal structures are unremarkable. IMPRESSION: There are small bilateral lower lobe pulmonary emboli again seen unchanged in distribution and extent from the August 10, 2020 prior study. Otherwise no acute disease.. <Electronically signed by Casey Stanton > 08/22/20 [id number]
[2020-08-22 16:43] VITALS: BP 118/59
--- NOTE | 2020-08-23 14:37 | ECGEPIP ---
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
--- NOTE | 2020-08-23 14:42 | ECGEPIP ---
[facility] - ED Test Date: 2020-08-22 Pat Name: IMANI OLMOS Department: Room: - Gender: Female Slat Basket Maker: AALIYAH : 1970 Requested By: MARTIN Dubon Order Number: [id number] Reading MD: Zee Cline Measurements Intervals [place] Rate: 75 P: 16 NE: 151 QRS: -14 QRSD: 78 T: 12 QT: 391 QTc: 438 Interpretive Statements SINUS RHYTHM NSTTW abnormalities COMPARED 08/22/20 Electronically Signed on 08-23-2020 14:42:33 EST by Zee Cline
== END 2020-08-22 16:52 | disposition home or self-care (01) ==
LOC: M ED 09:58
DX: I26.99 Other pulmonary embolism without acute cor pulmonale (principal); Z86.718 Personal history of other venous thrombosis and embolism; Z86.711 Personal history of pulmonary embolism; Z79.01 Long term (current) use of anticoagulants; Z79.899 Other long term (current) drug therapy
CPT/HCPCS: 71045; 71275; 80048; 80076; 83690; 84484; 84703; 85025; 93005; 93041; 94760; 99285; Q9967

== ENCOUNTER → 2021-05-21 | Outpatient (REF) | payer OTHER ==
[~2021-05-21] MED LIST changes: +ELIQ5TAB
== END ==
LOC: M LAB REF 17:53
PROVIDERS: ATTEND Nurse Practitioner Family
DX: R31.0 Gross hematuria (principal); N39.0 Urinary tract infection, site not specified

== ENCOUNTER → 2021-05-22 | Outpatient (CLI) | payer OTHER ==
[2021-05-22 16:20] LABS: BASO # 0.1 10^3/uL (0.0-0.2); BASO % 0.9 % (0.0-1.0); EOS # 0.1 10^3/uL (0.0-0.5); EOS % 1.9 % (0.0-3.0); HEMATOCRIT 39.4 % (36.0-47.0); HEMOGLOBIN 12.7 g/dl (12.0-15.5); LYMPH # 1.5 10^3/uL (1.5-5.0); MEAN CORPUSCULAR HEMOGLOBIN 28.9 pg (27.0-33.0); MEAN CORPUSCULAR HGB CONC 32.2 g/dl (32.0-36.5); MEAN CORPUSCULAR VOLUME 89.5 fl (80.0-96.0); MONO # 0.4 10^3/uL (0.0-0.8); MONO % 6.9 % (2.0-8.0); NEUTROPHILS # 4.2 10^3/uL (1.5-8.5); NEUTROPHILS % 65.8 % (36.0-66.0); PLATELET COUNT, AUTOMATED 203 10^3/uL (150-450); WHITE BLOOD COUNT 6.4 10^3/uL (4.0-10.0)
[2021-05-22 16:24] LABS: INR 1.01; PROTHROMBIN TIME 13.7 SECONDS (12.7-14.5)
[2021-05-22 16:25] LABS: PARTIAL THROMBOPLASTIN TIME 29.1 SECONDS (25.9-37.0)
[2021-05-22 16:29] LABS: ALBUMIN 3.2 GM/DL (3.2-5.2); ALT/SGPT 20 U/L (12-78); BILIRUBIN,DIRECT < 0.1 MG/DL (0.0-0.2); BILIRUBIN,TOTAL 0.2 MG/DL (0.2-1.0); BLOOD UREA NITROGEN 11 MG/DL (7-18); CALCIUM LEVEL 8.5 MG/DL (8.5-10.1); CARBON DIOXIDE LEVEL 30 MEQ/L (21-32); CHLORIDE LEVEL 109 MEQ/L (98-107); CREATININE FOR GFR 0.84 MG/DL (0.55-1.30); GLOMERULAR FILTRATION RATE > 60.0 (>58); GLUCOSE, FASTING 98 MG/DL (70-100); POTASSIUM SERUM 4.4 MEQ/L (3.5-5.1); SODIUM LEVEL 142 MEQ/L (136-145); TOTAL PROTEIN 6.4 GM/DL (6.4-8.2)
== END ==
LOC: M LAB 15:11
PROVIDERS: ATTEND Family Medicine
DX: R58 Hemorrhage, not elsewhere classified (principal)

== ENCOUNTER → 2021-08-24 | Outpatient (CLI) | payer OTHER ==
[2021-08-24 13:15] LABS: BASO # 0.1 10^3/uL (0.0-0.2); BASO % 0.8 % (0.0-1.0); EOS # 0.1 10^3/uL (0.0-0.5); EOS % 1.7 % (0.0-3.0); HEMATOCRIT 41.7 % (36.0-47.0); HEMOGLOBIN 13.4 g/dl (12.0-15.5); LYMPH # 1.8 10^3/uL (1.5-5.0); LYMPH % 27.3 % (24.0-44.0); MEAN CORPUSCULAR HEMOGLOBIN 28.9 pg (27.0-33.0); MEAN CORPUSCULAR HGB CONC 32.1 g/dl (32.0-36.5); MEAN CORPUSCULAR VOLUME 90.1 fl (80.0-96.0); MONO # 0.3 10^3/uL (0.0-0.8); NEUTROPHILS # 4.2 10^3/uL (1.5-8.5); NEUTROPHILS % 64.9 % (36.0-66.0); PLATELET COUNT, AUTOMATED 223 10^3/uL (150-450); RED BLOOD COUNT 4.63 10^6/uL (4.00-5.40); WHITE BLOOD COUNT 6.4 10^3/uL (4.0-10.0)
[2021-08-24 13:22] LABS: INR 1.01; PROTHROMBIN TIME 13.7 SECONDS (12.7-14.5)
[2021-08-24 13:23] LABS: PARTIAL THROMBOPLASTIN TIME 31.6 SECONDS (25.9-37.0)
[2021-08-24 13:45] LABS: BLOOD UREA NITROGEN 8 MG/DL (7-18); CALCIUM LEVEL 8.9 MG/DL (8.5-10.1); CARBON DIOXIDE LEVEL 29 MEQ/L (21-32); CHLORIDE LEVEL 105 MEQ/L (98-107); CREATININE FOR GFR 0.96 MG/DL (0.55-1.30); GLOMERULAR FILTRATION RATE > 60.0 (>58); GLUCOSE, FASTING 98 MG/DL (70-100); POTASSIUM SERUM 3.8 MEQ/L (3.5-5.1); SODIUM LEVEL 139 MEQ/L (136-145)
== END ==
LOC: M LAB 12:24
PROVIDERS: ATTEND Surgery Vascular Surgery
DX: Z01.818 Encounter for other preprocedural examination (principal); I26.99 Other pulmonary embolism without acute cor pulmonale; D69.8 Other specified hemorrhagic conditions

== ENCOUNTER → 2021-11-07 | Outpatient (REF) | payer OTHER, BC | LOC: M LAB REF 16:48 | PROVIDERS: ATTEND Nurse Practitioner Family | DX: R31.0 Gross hematuria (principal) ==

== ENCOUNTER 2022-01-24 10:29 | Emergency (ER) | payer BC, OTHER ==
[~2022-01-24] VITALS: Ht 162.6 cm; Wt 100.6 kg
[2022-01-24 11:01] LABS: BASO % 0.8 % (0.0-1.0); EOS # 0.1 10^3/uL (0.0-0.5); EOS % 1.8 % (0.0-3.0); HEMATOCRIT 43.6 % (36.0-47.0); HEMOGLOBIN 13.9 g/dl (12.0-15.5); LYMPH # 1.3 10^3/uL (1.5-5.0); LYMPH % 27.1 % (24.0-44.0); MEAN CORPUSCULAR HEMOGLOBIN 28.7 pg (27.0-33.0); MEAN CORPUSCULAR HGB CONC 31.9 g/dl (32.0-36.5); MEAN CORPUSCULAR VOLUME 89.9 fl (80.0-96.0); MONO # 0.3 10^3/uL (0.0-0.8); MONO % 5.3 % (2.0-8.0); NEUTROPHILS # 3.2 10^3/uL (1.5-8.5); NEUTROPHILS % 64.8 % (36.0-66.0); PLATELET COUNT, AUTOMATED 185 10^3/uL (150-450); RED BLOOD COUNT 4.85 10^6/uL (4.00-5.40); WHITE BLOOD COUNT 4.9 10^3/uL (4.0-10.0)
[2022-01-24 11:36] LABS: BLOOD UREA NITROGEN 10 MG/DL (7-18); CALCIUM LEVEL 9.1 MG/DL (8.5-10.1); CARBON DIOXIDE LEVEL 31 MEQ/L (21-32); CHLORIDE LEVEL 105 MEQ/L (98-107); CREATININE FOR GFR 0.87 MG/DL (0.55-1.30); GLOMERULAR FILTRATION RATE > 60.0 (>58); GLUCOSE, FASTING 100 MG/DL (70-100); NT-PRO BNP 289 PG/ML (<125); POTASSIUM SERUM 3.9 MEQ/L (3.5-5.1); SODIUM LEVEL 140 MEQ/L (136-145)
[2022-01-24 11:38] VITALS: BP 106/59
[2022-01-24] MEDS ORDERED: ISOVUE-370 76% 100ML VIAL As Ordered ONE (11:43)
[2022-01-24 11:47] LABS: CK-MB VALUE MASS 2.6 NG/ML (<3.6); MB/CK RELATIVE INDEX 2.24 (< OR =4)
== END 2022-01-24 15:01 | disposition home or self-care (01) ==
LOC: M ED 10:29
DX: S29.011A Strain of muscle and tendon of front wall of thorax, initial encounter (principal); Z86.711 Personal history of pulmonary embolism; Z86.718 Personal history of other venous thrombosis and embolism; Z86.16 Personal history of COVID-19; Z79.01 Long term (current) use of anticoagulants; Z79.899 Other long term (current) drug therapy
CPT/HCPCS: 71045; 71275; 80048; 82550; 82553; 83880; 84484; 85025; 93005; 93971; 99284; Q9967

== ENCOUNTER → 2022-02-03 | Outpatient (CLI) | payer BC, OTHER ==
[2022-02-03 11:08] LABS: ALBUMIN 3.7 GM/DL (3.2-5.2); BILIRUBIN,TOTAL 0.5 MG/DL (0.2-1.0); CALCIUM LEVEL 8.7 MG/DL (8.5-10.1); CHOLESTEROL RISK RATIO 2.395 (<5); CREATININE FOR GFR 1.09 MG/DL (0.55-1.30); GLOMERULAR FILTRATION RATE 56.8 (>58); POTASSIUM SERUM 4.4 MEQ/L (3.5-5.1); TOTAL PROTEIN 6.7 GM/DL (6.4-8.2)
== END ==
LOC: M LAB 10:17
PROVIDERS: ATTEND Nurse Practitioner Family
DX: Z00.00 Encounter for general adult medical examination without abnormal findings (principal)

== ENCOUNTER → 2022-03-22 | Outpatient (REF) | payer BC, OTHER | LOC: M LAB REF 11:43 | PROVIDERS: ATTEND Physician Assistant | DX: R30.0 Dysuria (principal) ==

== ENCOUNTER → 2022-03-27 | Outpatient (CLI) | payer BC, OTHER ==
[2022-03-27 13:46] LABS: BASO % 0.6 % (0.0-1.0); EOS # 0.1 10^3/uL (0.0-0.5); EOS % 1.5 % (0.0-3.0); HEMATOCRIT 40.3 % (36.0-47.0); HEMOGLOBIN 13.4 g/dl (12.0-15.5); LYMPH # 1.4 10^3/uL (1.5-5.0); LYMPH % 27.2 % (24.0-44.0); MEAN CORPUSCULAR HEMOGLOBIN 29.3 pg (27.0-33.0); MEAN CORPUSCULAR HGB CONC 33.3 g/dl (32.0-36.5); MEAN CORPUSCULAR VOLUME 88.2 fl (80.0-96.0); MONO # 0.3 10^3/uL (0.0-0.8); MONO % 6.5 % (2.0-8.0); NEUTROPHILS # 3.4 10^3/uL (1.5-8.5); PLATELET COUNT, AUTOMATED 199 10^3/uL (150-450); RED BLOOD COUNT 4.57 10^6/uL (4.00-5.40); WHITE BLOOD COUNT 5.3 10^3/uL (4.0-10.0)
[2022-03-27 14:37] LABS: MAGNESIUM LEVEL 2.4 MG/DL (1.8-2.4)
[2022-03-27 15:04] LABS: FOLATE 5.4 NG/ML
== END ==
LOC: M LAB 13:25
PROVIDERS: ATTEND Nurse Practitioner Family
DX: M79.10 Myalgia, unspecified site (principal); I26.99 Other pulmonary embolism without acute cor pulmonale

== ENCOUNTER → 2022-10-28 | Outpatient (CLI) | payer BC ==
[2022-10-28 14:27] LABS: APPEARANCE, URINE MANUAL HAZY (CLEAR); COLOR, URINE MANUAL ORANGE (YELLOW)
[2022-10-28 14:30] LABS: PROTEIN, URINE MANUAL OBSCURED mg/dL (NEGATIVE)
[2022-10-28 14:31] LABS: BILIRUBIN, URINE MANUAL OBSCURED (NEGATIVE); GLUCOSE, URINE (UA) MANUAL NEGATIVE (NEGATIVE); KETONE, URINE MANUAL OBSCURED mg/dL (NEGATIVE); UROBILINOGEN, URINE MANUAL OBSCURED mg/dl (NORMAL)
[2022-10-28 14:32] LABS: BLOOD URINE MANUAL POSITIVE (NEGATIVE); LEUKOCYTE ESTERASE, URINE MAN OBSCURED (NEGATIVE); NITRITE, URINE MANUAL OBSCURED (NEGATIVE)
[2022-10-28 14:48] LABS: RBC, URINE TNTC /hpf (0-3); WBC, URINE 30-40 /hpf (0-3)
[2022-10-28 14:49] LABS: BACTERIA, URINE SMALL AMOUNT; SQUAMOUS EPITHELIAL CELL URINE MOD AMOUNT /hpf (SMALL AMT)
[2022-10-28 14:50] LABS: TRANSITIONAL EPI CELLS, URINE SMALL AMOUNT /hpf
[2022-10-28 14:52] LABS: HYALINE CAST, URINE NONE SEEN /lpf (0-1)
== END ==
LOC: M LAB 13:23
PROVIDERS: ATTEND Nurse Practitioner Family
DX: N93.0 Postcoital and contact bleeding (principal)

== ENCOUNTER → 2023-02-03 | Outpatient (REF) | payer BC | LOC: M LAB REF 16:24 | PROVIDERS: ATTEND Nurse Practitioner Family | DX: R30.0 Dysuria (principal); N39.0 Urinary tract infection, site not specified ==

== ENCOUNTER → 2023-08-28 | Outpatient (CLI) | payer BC ==
[2023-08-28 08:25] LABS: BASO % 0.9 % (0.0-1.0); EOS # 0.1 10^3/uL (0.0-0.5); EOS % 2.5 % (0.0-3.0); HEMOGLOBIN 13.7 g/dl (12.0-15.5); LYMPH # 1.2 10^3/uL (1.5-5.0); MEAN CORPUSCULAR HEMOGLOBIN 28.8 pg (27.0-33.0); MEAN CORPUSCULAR HGB CONC 32.6 g/dl (32.0-36.5); MEAN CORPUSCULAR VOLUME 88.4 fl (80.0-96.0); MONO # 0.3 10^3/uL (0.0-0.8); NEUTROPHILS # 2.7 10^3/uL (1.5-8.5); NEUTROPHILS % 62.4 % (36.0-66.0); PLATELET COUNT, AUTOMATED 198 10^3/uL (150-450); RED BLOOD COUNT 4.75 10^6/uL (4.00-5.40); WHITE BLOOD COUNT 4.4 10^3/uL (4.0-10.0)
[2023-08-28 08:54] LABS: ALBUMIN 3.5 G/DL (3.2-5.2); ALKALINE PHOSPHATASE 72 U/L (46-116); ALT/SGPT 14 U/L (7.0-40); AST/SGOT 12 U/L (<34); BILIRUBIN,TOTAL 0.5 MG/DL (0.3-1.2); BLOOD UREA NITROGEN 10 MG/DL (9-23); CALCIUM LEVEL 8.7 MG/DL (8.5-10.1); CARBON DIOXIDE LEVEL 29 MMOL/L (20-31); CHLORIDE LEVEL 108 MMOL/L (98-107); CHOLESTEROL LEVEL 123 MG/DL (<200); CHOLESTEROL RISK RATIO 2.56 (<5); CREATININE FOR GFR 1.01 MG/DL (0.55-1.30); GLOMERULAR FILTRATION RATE > 60.0 (>51); GLUCOSE, FASTING 95 MG/DL (60-100); LDL CHOLESTEROL 62.8 MG/DL (<100); POTASSIUM SERUM 4.3 MMOL/L (3.5-5.1); SODIUM LEVEL 140 MMOL/L (136-145); THYROID STIMULATING HORMONE 1.935 uIU/ML (0.55-4.78); TOTAL PROTEIN 6.9 G/DL (5.7-8.2); TRIGLYCERIDES LEVEL 61 MG/DL (<150)
== END ==
LOC: M LAB 07:23
PROVIDERS: ATTEND Nurse Practitioner Family
DX: Z00.00 Encounter for general adult medical examination without abnormal findings (principal)

== ENCOUNTER → 2023-09-06 | Outpatient (REF) | payer BC | LOC: M WUC 18:50 | PROVIDERS: ATTEND Physician Assistant | DX: N39.0 Urinary tract infection, site not specified (principal) ==

== ENCOUNTER → 2023-12-20 | Outpatient (REF) | payer BC | LOC: M LAB REF 17:45 | PROVIDERS: ATTEND Physician Assistant | DX: N30.01 Acute cystitis with hematuria (principal) ==

== ENCOUNTER → 2024-03-16 | Outpatient (REF) | payer BC ==
[2024-03-16 22:40] LABS: APPEARANCE, URINE HAZY (CLEAR); BACTERIA, URINE AUTO 3+ (NEGATIVE); BILIRUBIN, URINE AUTO NEGATIVE (NEGATIVE); BLOOD, URINE BLOOD 3+ (NEGATIVE); COLOR, URINE YELLOW (YELLOW); GLUCOSE, URINE (UA) AUTO NEGATIVE (NEGATIVE); KETONE, URINE AUTO NEGATIVE (NEGATIVE); LEUKOCYTE ESTERASE, URINE AUTO 3+ (NEGATIVE); MUCUS, URINE SMALL (NEGATIVE); NITRITE, URINE AUTO NEGATIVE (NEGATIVE); PROTEIN, URINE AUTO 2+ mg/dL (NEGATIVE); RBC, URINE AUTO 58 /HPF (0-3); SQUAMOUS EPITHELIAL CELL UR AU 2 /HPF (0-6); UROBILINOGEN, URINE AUTO 0.2 mg/dL (0.0-2.0); WBC, URINE AUTO 82 /HPF (0-3)
== END ==
LOC: M LAB REF 22:20
PROVIDERS: ATTEND Physician Assistant Medical
DX: N39.0 Urinary tract infection, site not specified (principal)

== ENCOUNTER → 2024-04-10 | Outpatient (REF) | payer BC | LOC: M LAB REF 14:05 | PROVIDERS: ATTEND Physician Assistant | DX: N30.01 Acute cystitis with hematuria (principal) ==

== ENCOUNTER → 2024-09-21 | Outpatient (REF) | payer BC | LOC: M LAB REF 17:25 | PROVIDERS: ATTEND Nurse Practitioner Family | DX: R30.0 Dysuria (principal) ==